=== PATIENT | female | born 1990 | race Caucasian/White ===

== ENCOUNTER 2023-07-06 01:33 | Day surgery (SDC) | payer OTHER, SELFPAY ==
[2023-06-17 09:50] VITALS: BMI 25.4
--- NOTE | 2023-07-06 08:55 | WPDANESEPPF ---
Anes - Initial Pre Proc Eval Procedure: Operation Date: 07/06/23 10:00 Proposed Procedures p Colonoscopy - Dany Peña MD Date/Time: 07/06/23 08:55 Surgeon: Dany Peña MD Pre Op Diagnosis: Hemorrhage of anus/rectum Patient Data Age: 33 Gender: F Height: 1.6 m Weight: 65 kg Allergies Allergy/AdvReac Type Severity Reaction Status Date / Time No Known Allergies Allergy Mild Verified 07/06/23 08:53 Home Medications Medication Instructions Recorded Confirmed Type glycopyrrolate 2 mg tablet 2 mg PO BID-TID PRN sweating 10/29/20 07/06/23 History vitamins with calcium 1 tablet PO DAILY #90 tabs 12/23/22 07/06/23 Rx no.72-iron 29 mg-folic acid 1 mg tablet medroxyprogesterone 10 mg tablet 10 mg PO DAILY #10 tabs 01/28/23 07/06/23 Rx (Provera) letrozole 2.5 mg tablet 5 mg PO DAILY 5 days #10 tabs 05/17/23 07/06/23 Rx Patient hx anesthesia problems: none Family hx anesthesia problems: none Results Review: All pre-operative results and documents have been reviewed as part of the pre-operative evaluation. FORMERLY [facility], [facility] Past Medical History Medical History Rectal bleeding Family History Family History Father Hypertension Grandparent Carcinoma of colon Social History Social History Smoking status: Never smoker Alcohol intake: current Drinks per week: 3 Substance use: never Do You Feel Safe in your Home?: Yes Lack of Transportation: No Lack of Food: Never True Current Housing: I Have Housing Concerned About Future Housing: No Difficulty Paying Gas/Electric Bills: No Difficulty Paying for Meds: No Currently Unemployed: No Education: Decline to Answer Difficulty w/ Childcare or Family Care: Decline to Answer Living arrangements: with family Occupation/Education: occupation Gender identity (if verbalized by the patient): Female Sexual Orientation (if Verbalized by the Patient): Straight or Heterosexual Spiritual care concerns: No Anes - Eval Final PreProcedure Day of Procedure 07/06/23 08:55 Patient weight: normal Heart: regular rate and rhythm Lungs: clear to auscultation Airway: Mallampati scale class II Neurological: alert and oriented Last oral intake: >/= 8 hours ASA classification: II Emergent: no Anesthetic plan: proceed Anesthesia type and monitoring: general GIVS and standard monitoring Results Review: All pre-operative results and documents have been reviewed as part of the pre-operative evaluation. Informed Consent: The patient's anesthetic plan and its attendant risks and benefits were discussed with the patient/family/POA. Questions were solicited and answers provided to the satisfaction of the patient/family/POA.
[2023-07-06 08:59] VITALS: BP 111/72; PULSE 82; RESP 16; TEMP 36.4; O2SAT 100
[2023-07-06] MEDS: LACTATED RINGERS 1,000 ML 150 ML IV CONT (09:07)
--- NOTE | 2023-07-06 09:24 | PM.HPGS ---
History of Present Illness History of Present Illness Consent: Risks, benefits, and alternatives have been discussed and questions answered. Patient agrees to proceed with procedure. Chief complaint: Hemorrhage of anus/rectum Narrative: Alexsandra Loyd is a 33 year old female here for first colonoscopy, had rectal bleeding Review of Systems Review of Systems: All systems reviewed & are unremarkable except as noted in HPI and below PMFSH Past Medical History Medical History Rectal bleeding Family History Family History Father Hypertension Grandparent Carcinoma of colon Social History Social History Smoking status: Never smoker Alcohol intake: current Drinks per week: 3 Substance use: never Do You Feel Safe in your Home?: Yes Lack of Transportation: No Lack of Food: Never True Current Housing: I Have Housing Concerned About Future Housing: No Difficulty Paying Gas/Electric Bills: No Difficulty Paying for Meds: No Currently Unemployed: No Education: Decline to Answer Difficulty w/ Childcare or Family Care: Decline to Answer Living arrangements: with family Occupation/Education: occupation Gender identity (if verbalized by the patient): Female Sexual Orientation (if Verbalized by the Patient): Straight or Heterosexual Spiritual care concerns: No Meds Home Medications and Allergies Home Medications Medication Instructions Recorded Confirmed Type glycopyrrolate 2 mg tablet 2 mg PO BID-TID PRN sweating 10/29/20 07/06/23 History vitamins with calcium 1 tablet PO DAILY #90 tabs 12/23/22 07/06/23 Rx no.72-iron 29 mg-folic acid 1 mg tablet medroxyprogesterone 10 mg tablet 10 mg PO DAILY #10 tabs 01/28/23 07/06/23 Rx (Provera) letrozole 2.5 mg tablet 5 mg PO DAILY 5 days #10 tabs 05/17/23 07/06/23 Rx Allergies Allergy/AdvReac Type Severity Reaction Status Date / Time No Known Allergies Allergy Mild Verified 07/06/23 08:53 Vital Signs Vital Signs - 24 hr 07/06/23 08:59 Temperature 97.6 F Pulse Rate 82 Respiratory Rate 16 Blood Pressure 111/72 Pulse Oximetry 100 Oxygen Delivery Room Air Exam Const: General: comfortable and no acute distress HENMT: Face/Nose/Sinus: Normal nares present Eyes: General: appearance normal, both eyes and all related structures Neck: Neck: no JVD Resp: Auscultation: clear to auscultation bilaterally Cardio: Rate: regular rate Rhythm: regular rhythm GI: Inspection: non-distended GI Palp: Yes Soft to palpation Skin: General skin exam: normal color Neuro: General: gait normal Speech: normal speech Extrem: General: normal to inspection Psych: Mental Status: mental status grossly normal Assessment and Plan Assessment and plan (1) Rectal bleeding: Code(s): K62.5 - Hemorrhage of anus and rectum Status: Acute Assessment and Plan: colonoscopy
[2023-07-06 09:44] VITALS: BP 102/61; PULSE 80; RESP 20; O2SAT 100
[2023-07-06 09:54] VITALS: BP 100/75; PULSE 78; RESP 20; O2SAT 100
[2023-07-06 10:04] VITALS: BP 110/66; PULSE 64; RESP 20; O2SAT 100
== END 2023-07-06 10:20 | disposition home or self-care (01) ==
PROVIDERS: Visit Provider Internal Medicine Gastroenterology
PROC: 0DJD8ZZ Inspection of Lower Intestinal Tract, Via Natural or Artificial Opening Endoscopic (ICD-10-PCS; CPT 45378; principal; 2023-07-06 10:00)
DX: K51.20 Ulcerative (chronic) proctitis without complications (principal); K64.8 Other hemorrhoids
CPT/HCPCS: 45380; 88305; J2704; J7120

== ENCOUNTER 2023-08-30 11:04 | Outpatient (CLI) | payer OTHER, SELFPAY ==
--- NOTE | ~2023-08-30 | XR_ITS ---
EXAMINATION: XR hysterosalpingogram DATE: 08/30/2023 13:12 INDICATION: Female infertility associated with anovulation. TECHNIQUE: Multiple fluoroscopic images were obtained during contrast infusion into the endometrial c anal of the uterus by the primary physician. Fluoroscopy exposure time was 0.4 minutes. A total of 6 images were recorded. Total DAP was 1.811 Gycm^2 FINDINGS: The uterine cavity demonstrates normal morphology. The fallopian tubes are normal in caliber and pat ent bilaterally. There is normal spillage of contrast into the peritoneum on both sides. IMPRESSION: 1. Normal hysterosalpingogram. Reviewed, dictated and finalized at location A.
[2023-08-30 11:56] LABS: Beta HCG Quantitative < 2.39 mIU/ML
== END 2023-08-30 11:05 | disposition home or self-care (01) ==
PROVIDERS: PCP Family Medicine Sports Medicine; Visit Provider Obstetrics & Gynecology
DX: N97.0 Female infertility associated with anovulation (principal); E28.2 Polycystic ovarian syndrome
CPT/HCPCS: 36415; 58340; 74740; 84702; Q9966

== ENCOUNTER 2023-11-26 12:18 | Outpatient (CLI) | payer OTHER, SELFPAY ==
--- NOTE | ~2023-11-26 | US_ITS ---
Pelvic ultrasound. Clinical History: First trimester , establish dates and viability. Technique: Realtime transabdominal and transvaginal scanning of the pelvis was performed. Color flow Doppler and Doppler spectral analysis were performed. Findings: The uterus is anteverted, and contains a diamniotic, dichorionic twin intrauterine gestatio n. Fetus A demonstrates crown-rump length of 2 cm, compatible with estimated gestational age of 8 wee ks 4 days. heart rate is 167 bpm. Fetus B demonstrates crown-rump length of 1.7 cm, compatible with estimated gestational age of 8 weeks 1 day. heart rate is 186 bpm.. Small subchorionic hem orrhage noted, measuring up to 2.3 cm in maximum length. The right ovary measures 3.4 x 4.4 x 3.3 cm. Right ovarian corpus luteal cyst noted. The left ovary is not visualized. No significant left ovarian or adnexal mass is seen. There is no evidence of free fluid in the cul de sac. Impression: Diamniotic, dichorionic twin intrauterine gestations, as detailed above. Estimated gestational ages a re in the ranges of 8 weeks 1 day-8 weeks 4 days. Cardiac activity, as above. Reviewed, dictated and finalized at location . Impression: Diamniotic, dichorionic twin intrauterine gestations, as detailed above. Estima jes gestational ages are in the ranges of 8 weeks 1 day-8 weeks 4 days. Cardiac activity, as above. Impression: Diamniotic, dichorionic twin intrauterine gestations, as detailed above. Estima jes gestational ages are in the ranges of 8 weeks 1 day-8 weeks 4 days. Cardiac activity, as above.
== END 2023-11-26 12:19 | disposition home or self-care (01) ==
LOC: GOSHIMG 12:23
PROVIDERS: PCP Obstetrics & Gynecology; Visit Provider Obstetrics & Gynecology
DX: Z36.87 Encounter for antenatal screening for uncertain dates (principal); O26.851 Spotting complicating pregnancy, first trimester; O30.041 Twin pregnancy, dichorionic/diamniotic, first trimester; Z3A.08 8 weeks gestation of pregnancy
CPT/HCPCS: 76801; 76802

== ENCOUNTER 2023-12-31 13:12 | Outpatient (CLI) | payer OTHER, SELFPAY ==
--- NOTE | ~2023-12-31 | US_ITS ---
EXAMINATION: US OB <= 14 weeks fetus DATE: 12/31/2023 13:37 INDICATION: Threatened TECHNIQUE: Real-time pelvic ultrasound utilizing transabdominal probe was performed. The josephine marie radiologist was not present for the study. COMPARISON: 12/15/2023 FINDINGS: The uterus measures 16.6 x 8.2 x 11.7 cm. There are 2 separate intrauterine gestational sacs separat ed by a thick membrane consistent with a dichorionic diamniotic . poles are identified in both gestational sacs. The placenta is anterior with no evident subchorionic hematoma. The crown rump length for fetus A in the sac positioned at the central and right fundus measures 7.5 cm, which correlates with an estimated gestational age of 13 weeks and 4 days. heart motion is identified measuring 171 beats per minute (bpm) by M-mode Doppler. The crown rump length for fetus B in the sac positioned on the left measures 1.6 cm, which correlates with an estimated gestational age of 8 weeks and 0 days. There remains no evident heart motion on M-mode Doppler consistent with the provided history of prior demise. The right ovary measures 3.9 x 2.6 x 3.2 cm. The left ovary not visualized. There is no free fluid in the pelvis. IMPRESSION: 1. Dichorionic, diamnionic with 1 living fetus with appropriate interval growth. Chronic d emise of the second fetus which has not significantly changed in size and which remains without evide nt heart motion on Doppler imaging. 2. [place]-rump length of fetus a measures 7.5 cm which concordant with the previously estimated gestat ional age of 13 weeks 4 day(s) +/- day(s) and estimated date of delivery (GRISEL) of 07/03/2024 based upo n earliest ultrasound performed at this institution on 11/26/2023. Reviewed, dictated and finalized at location B. YTIC PROGRAMMER IMPRESSION: 1. Dichorionic, diamnionic with 1 living fetus with appropriate inte rval growth. Chronic demise of the second fetus which has not significantly mason nged in size and which remains without evident heart motion on Doppler imaging. 2. [place]-rump length of fetus a measures 7.5 cm which concordant with the previ ously estimated gestational age of 13 weeks 4 day(s) +/- day(s) and estimated d ate of delivery (GRISEL) of 07/03/2024 based upon earliest ultrasound performed at this institution on 11/26/2023.
== END 2023-12-31 13:13 | disposition home or self-care (01) ==
LOC: MICIMG 13:13
PROVIDERS: PCP Obstetrics & Gynecology; Visit Provider Obstetrics & Gynecology
DX: O20.0 Threatened abortion (principal); Z3A.00 Weeks of gestation of pregnancy not specified
CPT/HCPCS: 76801

== ENCOUNTER 2024-01-30 15:59 | Emergency (ER) | payer OTHER, SELFPAY ==
[2024-01-30 16:04] VITALS: BP 107/59; PULSE 103; RESP 16; TEMP 36.4; O2SAT 100
--- NOTE | 2024-01-30 16:21 | ED_ITS ---
HPI - General Adult General Chief complaint: Nausea/Vomiting/Diarrhea Stated complaint: vomiting, 17 weeks Time Seen by Provider: 01/30/24 16:09 History of Present Illness HPI narrative: Patient is a 34-year-old female who presents ER with nausea and vomiting. Symptoms began this morning. Initially thought it was motion sickness but has not been able to keep down food water. She has also had a few loose stools. She has antiemetic medication home but was not available with her when symptoms started. No fevers or chills or sweats. She has a nephew that she was around that has illness but she is unsure if it is the same thing. She is currently 17 weeks and is followed by Dr. Sophia Dennis. She has not yet been able feel baby move. She is having no vaginal bleeding or discharge. Patient does report that she had a hot ham and cheese sandwich yesterday as well as a steak that was cooked approximately medium well. Related Data Allergies Allergy/AdvReac Type Severity Reaction Status Date / Time No Known Allergies Allergy Mild Verified 01/26/24 17:32 Review of Systems 2 Review of Systems: All systems reviewed & are unremarkable except as noted in HPI and below Constitutional: Constitutional: Reports no additional constitutional complaints Gastrointestinal: Gastrointestinal: Denies abdominal pain, Reports diarrhea, Reports nausea and Reports vomiting Genitourinary: Genitourinary: Reports no additional female genitourinary complaints [facility] Past Medical History Medical History Rectal bleeding Family History Family History Father Hypertension Grandparent Carcinoma of colon Social History Social History Smoking status: Never smoker Alcohol intake: former Drinks per week: 3 Alcohol use details: before Substance use: never Do You Feel Safe in your Home?: Yes Lack of Transportation: No Lack of Food: Never True Current Housing: I Have Housing Concerned About Future Housing: No Difficulty Paying Gas/Electric Bills: No Difficulty Paying for Meds: No Currently Unemployed: No Education: Bachelor's Degree Difficulty w/ Childcare or Family Care: No Living arrangements: with family Occupation/Education: occupation Gender identity (if verbalized by the patient): Female Sexual Orientation (if Verbalized by the Patient): Straight or Heterosexual Spiritual care concerns: No Exam 2 Narrative: GENERAL: Well-appearing, well-nourished, and in no acute distress. HEAD: Normocephalic, atraumatic. ENT: Mucous membranes moist. CHEST: Clear to auscultation. No respiratory distress. HEART: Tachycardic and regular. Normal peripheral pulses. ABDOMEN: Soft, nontender, nondistended. EXTREMITIES: Normal range of motion. No edema. NEURO: Alert and oriented x3. PSYCH: Normal mood and affec Course Course Emergency Course: Patient resting comfortably. Hydrated. 4+ ketones in urine. No UTI. Tolerating PO. Has zofran at home, will provide phenergan as well. D/c. Vital Signs Vital signs: Vital Signs Temperature 97.5 F L 01/30/24 16:04 Pulse Rate 103 H 01/30/24 16:04 Respiratory Rate 16 01/30/24 16:04 Blood Pressure 107/59 L 01/30/24 16:04 Pulse Oximetry 100 01/30/24 16:04 Oxygen Delivery Room Air 01/30/24 16:04 Temperature 97.5 F L 01/30/24 16:04 Pulse Rate 100 01/30/24 18:13 Respiratory Rate 16 01/30/24 18:13 Blood Pressure 102/55 L 01/30/24 18:13 Pulse Oximetry 99 01/30/24 18:13 Oxygen Delivery Room Air 01/30/24 16:04 Medical Decision Making Vital Signs Vital Signs: Vital Signs Temperature 97.5 F L 01/30/24 16:04 Pulse Rate 103 H 01/30/24 16:04 Respiratory Rate 16 01/30/24 16:04 Blood Pressure 107/59 L 01/30/24 16:04 Pulse Oximetry 100 01/30/24 16:04 Oxygen Delivery Room Air 01/30/24 16:04 Temperature 97.5 F L 01/30/24 16:04 Pulse Rate 100 01/30/24 18:13 Respiratory Rate 16 01/30/24 18:13 Blood Pressure 102/55 L 01/30/24 18:13 Pulse Oximetry 99 01/30/24 18:13 Oxygen Delivery Room Air 01/30/24 16:04 Lab Data 01/30/24 16:46 01/30/24 16:46 Labs: Lab Results 01/30/24 01/30/24 Range/Units 16:46 17:17 WBC 12.2 H (4.5-10.0) K/mm3 RBC 4.21 (4.2-5.4) M/mm3 Hgb 12.2 (12.0-15.0) g/dL Hct 35.1 L (37.0-47.0) % MCV 83.4 (80-100) fl MCH 29.0 (26-34) pg MCHC 34.8 (32-36) g/dl RDW 12.5 (11.5-14.5) % Plt Count 202 (150-375) k/mm3 MPV 9.9 (7.4-10.4) fl Immature Gran % (Auto) 0.3 (0-0.5) % Neut % (Auto) 93.2 H (45.5-73.1) % Lymph % (Auto) 3.0 L (18.3-44.2) % [place] % (Auto) 3.1 (2.6-8.5) % Eos % (Auto) 0.2 (0-4.4) % Baso % (Auto) 0.2 (0.2-1.2) % Lymph # (Auto) 0.37 L (0.9-3.2) K/mm3 [place] # (Auto) 0.4 (0.1-0.6) K/mm3 Eos # (Auto) 0.0 (0-0.3) K/mm3 Baso # (Auto) 0.0 (0.0-0.1) K/mm3 Abs Immat Gran (auto) 0.04 H (0.00-0.031) K/mm3 Absolute Neuts (auto) 11.4 H (1.3-6.7) K/mm3 Absolute Nucleated RBC 0.000 (0.0-0.012) K/mm3 Nucleated RBC % 0.0 (0.0-0.2) % Sodium 133 L (137-145) mmol/L Potassium 4.3 (3.4-5.0) mmol/L Chloride 105 (98-107) mmol/L Carbon Dioxide 21 L (22-30) mmol/L Anion Gap 7 (4-12) mmol/L BUN 14 (7-17) mg/dL Creatinine 0.60 L (0.7-1.0) mg/dL Estim Creat Clear Calc 95 ml/min Estimated GFR > 60 (59 - ) Glucose 79 (65-110) mg/dL Calcium 8.8 (8.4-10.2) mg/dL Total Bilirubin 0.5 (0.2-1.3) mg/dL AST 19 (14-36) U/L ALT 16 (6-35) U/L Alkaline Phosphatase 51 (38-126) U/L Total Protein 7.0 (6.3-8.2) g/dL Albumin 3.9 (3.5-5.1) g/dL Lipase 87 (23-300) U/L Urine Color Yellow (Yellow) Urine Appearance Clear (Clear) Urine pH 5.5 (5.0-9.0) Ur Specific [place] 1.031 (1.001-1.035) Urine Protein Trace (Negative) mg/dL Urine Glucose (UA) Negative (Negative) mg/dL Urine Ketones 4+ H (Negative) mg/dL Ur Blood (Man) Negative (Negative) Urine Nitrate Negative (Negative) Urine Bilirubin Negative (Negative) Urine Urobilinogen 0.2 (<2.0) mg/dL Leukocyte Esterase Rfl Negative (Negative) SANTA/UL Urine RBC 0-2 (0-2) /hpf Urine WBC 0-5 (0-3) /hpf Ur Squamous Epith Cells None seen (Few) /hpf Urine Bacteria None seen /hpf Urine Casts 0-2 Discharge Plan Discharge Clinical Impression: Nausea and vomiting during Patient Disposition: Home, Self-Care Condition: Stable Instructions: Acute Nausea and Vomiting (ED) Additional Instructions: Please drink plenty of fluids at home. Return to the emergency department if you develop high fevers, have persistent severe abdominal pain, or have bloody stools or vomit, as these could be signs of a more serious medical emergency. Return to the emergency department if you are unable to keep down liquids because of severe nausea/vomiting. Patient Language: Mongolian Prescriptions: New promethazine 25 mg tablet 12.5 - 25 mg PO Q6H PRN (Reason: nausea and vomiting) Qty: 12 0RF No Action PNV,calcium 72-iron,carb-folic 29 mg iron- 1 mg tablet 1 tablet PO DAILY Qty: 90 1RF mesalamine [Canasa] 1,000 mg suppository 1 g RECTAL .daily 30 Days Qty: 30 3RF Follow-up/Referrals: Sophia Dennis MD [Primary Care Provider] - 1 Week
[2024-01-30] MEDS: ONDANSETRON INJ 4 MG/2 ML VIAL IV PUSH (16:43)
[2024-01-30] MEDS: SODIUM CHLORIDE 0.9% IV 1,000 ML 999 ML IV CONT ×2 (16:43→17:33)
--- NOTE | 2024-01-30 16:51 | PC.NURSE ---
Pt reports unable to give urine sample at this time, will use call light when ready to give sample
[2024-01-30 16:52] LABS: Basophils Percent Auto 0.2 % (0.2-1.2); Eosinophils Percent Auto 0.2 % (0-4.4); Hematocrit 35.1 % (37.0-47.0); Hemoglobin 12.2 g/dL (12.0-15.0); Immature Granulocyte Absolute 0.04 K/mm3 (0.00-0.031); Immature Granulocyte Percent A 0.3 % (0-0.5); Lymphocytes Absolute Auto 0.37 K/mm3 (0.9-3.2); Mean Corpuscular HGB Conc 34.8 g/dl (32-36); Mean Corpuscular Volume 83.4 fl (80-100); Mean Platelet Volume 9.9 fl (7.4-10.4); Monocytes Absolute Auto 0.4 K/mm3 (0.1-0.6); Monocytes Percent Auto 3.1 % (2.6-8.5); Neutrophils Absolute Auto 11.4 K/mm3 (1.3-6.7); Neutrophils Percent Auto 93.2 % (45.5-73.1); Platelet Count Result 202 k/mm3 (150-375); Red Blood Count 4.21 M/mm3 (4.2-5.4); Red Cell Distribution Width 12.5 % (11.5-14.5); White Blood Count 12.2 K/mm3 (4.5-10.0)
[2024-01-30 17:04] LABS: Alanine Aminotransferase 16 U/L (6-35); Albumin Level 3.9 g/dL (3.5-5.1); Alkaline Phosphatase 51 U/L (38-126); Anion Gap 7 mmol/L (4-12); Aspartate Amino Transferase 19 U/L (14-36); Bilirubin,Total 0.5 mg/dL (0.2-1.3); Blood Urea Nitrogen 14 mg/dL (7-17); Calcium 8.8 mg/dL (8.4-10.2); Carbon Dioxide 21 mmol/L (22-30); Chloride 105 mmol/L (98-107); Estimated CRCL calculation 95 ml/min; Estimated Glomerular Filt Rate > 60; Glucose 79 mg/dL (65-110); Lipase 87 U/L (23-300); Potassium 4.3 mmol/L (3.4-5.0); Sodium 133 mmol/L (137-145)
[2024-01-30 17:28] LABS: Add Urine Microscopic? YES; Appearance Urine Clear (Clear); Bacteria Urine None Seen /hpf; Bilirubin Urine Negative (Negative); Blood Urine Negative (Negative); Color Urine Yellow (Yellow); Glucose Urine UA Negative (Negative); Ketones Urine 4+ mg/dL (Negative); Leukocyte Esterase Ur Negative LEU/UL (Negative); Nitrate Urine Negative (Negative); Non Pathogenic Casts 0-2; Protein Urine Trace mg/dL (Negative); RBC Urine 0-2 /hpf (0-2); Specific Grav Ur 1.031 (1.001-1.035); Squamous Epithelial Cell Urine None Seen /hpf (Few); Urobilinogen Urine 0.2 mg/dL (<2.0); WBC Urine 0-5 /hpf (0-3); pH Urine 5.5 (5.0-9.0)
[2024-01-30 17:34] VITALS: BP 98/63; PULSE 97; RESP 18; O2SAT 99
--- NOTE | 2024-01-30 17:34 | PC.NURSE ---
Pt given crackers and water per EDP for PO challenge
[2024-01-30 18:13] VITALS: BP 102/55; PULSE 100; RESP 16; O2SAT 99
[2024-01-30 18:39] VITALS: BP 105/52; PULSE 100; RESP 18; O2SAT 100
== END 2024-01-30 18:44 | disposition home or self-care (01) ==
PROVIDERS: Emergency Provider Emergency Medicine; PCP Obstetrics & Gynecology
DX: O21.0 Mild hyperemesis gravidarum (principal); Z3A.17 17 weeks gestation of pregnancy
CPT/HCPCS: 36415; 80053; 81001; 83690; 85025; 96361; 96374; 99284; J2405; J7030

== ENCOUNTER 2024-02-01 09:06 | Emergency (ER) | payer OTHER, SELFPAY ==
--- NOTE | ~2024-02-01 | US_ITS ---
EXAMINATION: US OB limited DATE: 02/01/2024 10:33 INDICATION: Low abdominal pain. . Estimated gestational age of 18 weeks and 0 days. TECHNIQUE: Real-time ultrasound of the pelvis was performed. COMPARISON: Ultrasound 12/31/2023 FINDINGS: There are 2 gestational sacs by a thick membrane. There is chronic demise of one fetus with crown-rump length of 1.1 cm. There is a living intrauterine gestation with variable presentation. Th e placenta is anterior. heart rate is 155 beats per minute (bpm). The amniotic fluid volume is subjectively normal. The deepest vertical pocket is 4.3 cm. Right ovary measures 4.4 x 3.8 x 3.2 cm. Left ovary measures 3.1 x 2.7 x 2.5 cm. There is normal vascular flow in the ovaries. IMPRESSION: 1. Dichorionic, diamniotic with single living fetus in variable presentation and chronic de mise of the second fetus. Reviewed, dictated and finalized at location [facility]. [facility] IMPRESSION: 1. Dichorionic, diamniotic with single living fetus in variable prese ntation and chronic demise of the second fetus.
[2024-02-01 09:07] VITALS: BP 88/50; PULSE 80; RESP 16; TEMP 36.4; O2SAT 100
[2024-02-01 09:36] LABS: Basophils Percent Auto 0.3 % (0.2-1.2); Eosinophils Absolute Auto 0.1 K/mm3 (0-0.3); Eosinophils Percent Auto 0.8 % (0-4.4); Hematocrit 34.2 % (37.0-47.0); Hemoglobin 11.7 g/dL (12.0-15.0); Immature Granulocyte Absolute 0.04 K/mm3 (0.00-0.031); Immature Granulocyte Percent A 0.6 % (0-0.5); Lymphocytes Absolute Auto 1.15 K/mm3 (0.9-3.2); Lymphocytes Percent Auto 17.8 % (18.3-44.2); Mean Corpuscular HGB Conc 34.2 g/dl (32-36); Mean Corpuscular Hemoglobin 28.5 pg (26-34); Mean Corpuscular Volume 83.4 fl (80-100); Monocytes Absolute Auto 0.5 K/mm3 (0.1-0.6); Monocytes Percent Auto 7.1 % (2.6-8.5); Neutrophils Absolute Auto 4.8 K/mm3 (1.3-6.7); Neutrophils Percent Auto 73.4 % (45.5-73.1); Platelet Count Result 243 k/mm3 (150-375); White Blood Count 6.5 K/mm3 (4.5-10.0)
[2024-02-01 09:39] VITALS: BP 101/65; PULSE 88; RESP 16; O2SAT 100
[2024-02-01] MEDS: SODIUM CHLORIDE 0.9% IV 1,000 ML 999 ML IV CONT (09:43)
--- NOTE | 2024-02-01 09:43 | ED_ITS ---
HPI - Abdominal Pain General Chief Complaint: Abdominal Pain <Dominic Bundy PA-C - Last Filed: 02/01/24 17:25> Stated Complaint: abd pain 18 wks preg <Dominic Bundy PA-C - Last Filed: 02/01/24 17:25> Time Seen by Provider: 02/01/24 09:31 <Dominic Bundy PA-C - Last Filed: 02/01/24 17:25> Source: patient <WILIAM Olivera Last Filed: 02/01/24 17:25> Mode of arrival: ambulatory <Dominic Bundy PA-C - Last Filed: 02/01/24 17:25> Limitations: no limitations <Dominic Bundy PA-C - Last Filed: 02/01/24 17:25> History of Present Illness HPI narrative: This is a 34-year-old female who was around 18 weeks and who presents to the ED for chief complaint of right-sided abdominal pain beginning this morning. Reports she was here couple of days ago for nausea, vomiting. States that she was dehydrated but the nausea and vomiting has since subsided. Today she is just having the right-sided abdominal pain. It is in the right lower quadrant and does not radiate. She does note that the pain is precipitated by certain positioning or movements. Denies associated fevers or diarrhea. 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 She is . Follows with Dr. Dennis. Denies diarrhea, GI bleeding symptoms, flank pain, urinary symptoms or any further complaints. <Dominic Bundy PA-C - Last Filed: 02/01/24 17:25> Related Data Allergies/Adverse Reactions: Allergies Allergy/AdvReac Type Severity Reaction Status Date / Time No Known Allergies Allergy Mild Verified 02/01/24 09:07 <Dominic Bundy PA-C - Last Filed: 02/01/24 17:25> Review of Systems 2 Review of Systems: All systems as dictated in HPI <Dominic Bundy PA-C - Last Filed: 02/01/24 17:25> [facility] Past Medical History Medical History: Medical History Rectal bleeding <Dominic Bundy PA-C - Last Filed: 02/01/24 17:25> Family History Family History: Family History Father Hypertension Grandparent Carcinoma of colon <WILIAM Olivera Last Filed: 02/01/24 17:25> Social History Social History: Social History Smoking status: Never smoker Alcohol intake: former Drinks per week: 3 Alcohol use details: before Substance use: never Do You Feel Safe in your Home?: Yes Lack of Transportation: No Lack of Food: Never True Current Housing: I Have Housing Concerned About Future Housing: No Difficulty Paying Gas/Electric Bills: No Difficulty Paying for Meds: No Currently Unemployed: No Education: Bachelor's Degree Difficulty w/ Childcare or Family Care: No Living arrangements: with family Occupation/Education: occupation Gender identity (if verbalized by the patient): Female Sexual Orientation (if Verbalized by the Patient): Straight or Heterosexual Spiritual care concerns: No <WILIAM Olivera Last Filed: 02/01/24 17:25> Exam 2 Narrative: GENERAL: Well-appearing, well-nourished, and in no acute distress. HEAD: Normocephalic, atraumatic. EYES: PERRLA and EOMI. ENT: Nares clear, no rhinorrhea or epistaxis. Mucous membranes moist. Oropharynx without tonsillar hypertrophy exudate or other lesions. NECK: Supple. No adenopathy or masses. CHEST: No respiratory distress. Clear to auscultation. No wheezes rales or rhonchi HEART: Regular rate and rhythm. No murmur heard. Normal peripheral pulses. ABDOMEN: Gravid abdomen. Soft, nontender, nondistended, normal active bowel sounds. MSK: Normal range of motion. No edema. SKIN: Warm, dry, no rash. NEURO: Alert and oriented x4. No focal deficits. PSYCH: Normal mood and affect. <Dominic Bundy PA-C - Last Filed: 02/01/24 17:25> Course FLOW SPECIALIST/PA Physician Supervision Patient's HPI, Exam, and MDM were reviewed and I agreed with the workup and disposition done in the emergency department by the MLP. I was available for consultation, but was not directly involved with patient's care nor did I evaluate the patient. <Janes Long MD - Last Filed: 02/04/24 10:46> Vital Signs Vital signs: Vital Signs Temperature 36.4 C L 02/01/24 09:07 Pulse Rate 80 02/01/24 09:07 Respiratory Rate 16 02/01/24 09:07 Blood Pressure 88/50 L 02/01/24 09:07 Pulse Oximetry 100 02/01/24 09:07 Oxygen Delivery Room Air 02/01/24 09:07 Temperature 36.4 C L 02/01/24 09:07 Pulse Rate 88 02/01/24 09:39 Respiratory Rate 16 02/01/24 09:39 Blood Pressure 101/65 02/01/24 09:39 Pulse Oximetry 100 02/01/24 09:39 Oxygen Delivery Room Air 02/01/24 09:07 <RADHA OliveraC - Last Filed: 02/01/24 17:25> Vital Signs Temperature 36.4 C L 02/01/24 09:07 Pulse Rate 80 02/01/24 09:07 Respiratory Rate 16 02/01/24 09:07 Blood Pressure 88/50 L 02/01/24 09:07 Pulse Oximetry 100 02/01/24 09:07 Oxygen Delivery Room Air 02/01/24 09:07 Temperature 36.4 C L 02/01/24 09:07 Pulse Rate 88 02/01/24 09:39 Respiratory Rate 16 02/01/24 09:39 Blood Pressure 101/65 02/01/24 09:39 Pulse Oximetry 100 02/01/24 09:39 Oxygen Delivery Room Air 02/01/24 09:07 <Janes Long MD - Last Filed: 02/04/24 10:46> MDM - Abdominal Pain MDM Narrative Medical decision making narrative: This is a 34-year-old female who is approximately 18 weeks presents to the ED for chief complaint of right lower quadrant abdominal pain. She was just here couple days ago for N/V but this has resolved. Vitals are normal. Exam is unremarkable overall. No focal tenderness detected on exam. Lab work shows normal white count on CBC. It actually has improved are from 12- 6 compared to previous visit 2 days ago. CMP unremarkable. Urinalysis shows 4+ ketones. No UTI. Ultrasound obstetric: IMPRESSION: 1. Dichorionic, diamniotic with single living fetus in variable presentation and chronic demise of the second fetus. Offered patient pain medications but she declined here. She was given fluids for the dehydration as well as Tylenol. She feels well on re-evaluation. Presentation most likely consistent with round ligament pain. Low suspicion for acute intra-abdominal process, no clinical evidence of appendicitis. No clinical evidence for renal lithiasis. Patient will be discharged in stable condition. Supportive measures discussed and return precautions given. Patient is understanding and agreeable with plan for discharge with PCP/OB follow-up. <Dominic Bundy PA-C - Last Filed: 02/01/24 17:25> Lab Data Result diagrams: 02/01/24 09:25 02/01/24 09:25 <Dominic Bundy PA-C - Last Filed: 02/01/24 17:25> Labs: Lab Results 02/01/24 02/01/24 Range/Units 09:25 10:37 WBC 6.5 (4.5-10.0) K/mm3 RBC 4.10 L (4.2-5.4) M/mm3 Hgb 11.7 L (12.0-15.0) g/dL Hct 34.2 L (37.0-47.0) % MCV 83.4 (80-100) fl MCH 28.5 (26-34) pg MCHC 34.2 (32-36) g/dl RDW 13.0 (11.5-14.5) % Plt Count 243 (150-375) k/mm3 MPV 10.0 (7.4-10.4) fl Immature Gran % (Auto) 0.6 H (0-0.5) % Neut % (Auto) 73.4 H (45.5-73.1) % Lymph % (Auto) 17.8 L (18.3-44.2) % [place] % (Auto) 7.1 (2.6-8.5) % Eos % (Auto) 0.8 (0-4.4) % Baso % (Auto) 0.3 (0.2-1.2) % Lymph # (Auto) 1.15 (0.9-3.2) K/mm3 [place] # (Auto) 0.5 (0.1-0.6) K/mm3 Eos # (Auto) 0.1 (0-0.3) K/mm3 Baso # (Auto) 0.0 (0.0-0.1) K/mm3 Abs Immat Gran (auto) 0.04 H (0.00-0.031) K/mm3 Absolute Neuts (auto) 4.8 (1.3-6.7) K/mm3 Absolute Nucleated RBC 0.000 (0.0-0.012) K/mm3 Nucleated RBC % 0.0 (0.0-0.2) % Sodium 132 L (137-145) mmol/L Potassium 3.6 (3.4-5.0) mmol/L Chloride 107 (98-107) mmol/L Carbon Dioxide 19 L (22-30) mmol/L Anion Gap 6 (4-12) mmol/L BUN 7 D (7-17) mg/dL Creatinine 0.60 L (0.7-1.0) mg/dL Estim Creat Clear Calc 95 ml/min Estimated GFR > 60 (59 - ) Glucose 100 (65-110) mg/dL Calcium 8.6 (8.4-10.2) mg/dL Total Bilirubin 0.4 (0.2-1.3) mg/dL AST 35 (14-36) U/L ALT 30 (6-35) U/L Alkaline Phosphatase 58 (38-126) U/L Total Protein 6.0 L (6.3-8.2) g/dL Albumin 3.8 (3.5-5.1) g/dL Lipase 87 (23-300) U/L Urine Color Yellow (Yellow) Urine Appearance Clear (Clear) Urine pH 8.0 (5.0-9.0) Ur Specific Griffith 1.015 (1.001-1.035) Urine Protein Negative (Negative) mg/dL Urine Glucose (UA) Negative (Negative) mg/dL Urine Ketones 4+ H (Negative) mg/dL Ur Blood (Man) Negative (Negative) Urine Nitrate Negative (Negative) Urine Bilirubin Negative (Negative) Urine Urobilinogen 1.0 (<2.0) mg/dL Leukocyte Esterase Rfl Negative (Negative) [facility] <Dominic Bundy PA-C - Last Filed: 02/01/24 17:25> Lab Results 02/01/24 02/01/24 Range/Units 09:25 10:37 WBC 6.5 (4.5-10.0) K/mm3 RBC 4.10 L (4.2-5.4) M/mm3 Hgb 11.7 L (12.0-15.0) g/dL Hct 34.2 L (37.0-47.0) % MCV 83.4 (80-100) fl MCH 28.5 (26-34) pg MCHC 34.2 (32-36) g/dl RDW 13.0 (11.5-14.5) % Plt Count 243 (150-375) k/mm3 MPV 10.0 (7.4-10.4) fl Immature Gran % (Auto) 0.6 H (0-0.5) % Neut % (Auto) 73.4 H (45.5-73.1) % Lymph % (Auto) 17.8 L (18.3-44.2) % [place] % (Auto) 7.1 (2.6-8.5) % Eos % (Auto) 0.8 (0-4.4) % Baso % (Auto) 0.3 (0.2-1.2) % Lymph # (Auto) 1.15 (0.9-3.2) K/mm3 [place] # (Auto) 0.5 (0.1-0.6) K/mm3 Eos # (Auto) 0.1 (0-0.3) K/mm3 Baso # (Auto) 0.0 (0.0-0.1) K/mm3 Abs Immat Gran (auto) 0.04 H (0.00-0.031) K/mm3 Absolute Neuts (auto) 4.8 (1.3-6.7) K/mm3 Absolute Nucleated RBC 0.000 (0.0-0.012) K/mm3 Nucleated RBC % 0.0 (0.0-0.2) % Sodium 132 L (137-145) mmol/L Potassium 3.6 (3.4-5.0) mmol/L Chloride 107 (98-107) mmol/L Carbon Dioxide 19 L (22-30) mmol/L Anion Gap 6 (4-12) mmol/L BUN 7 D (7-17) mg/dL Creatinine 0.60 L (0.7-1.0) mg/dL Estim Creat Clear Calc 95 ml/min Estimated GFR > 60 (59 - ) Glucose 100 (65-110) mg/dL Calcium 8.6 (8.4-10.2) mg/dL Total Bilirubin 0.4 (0.2-1.3) mg/dL AST 35 (14-36) U/L ALT 30 (6-35) U/L Alkaline Phosphatase 58 (38-126) U/L Total Protein 6.0 L (6.3-8.2) g/dL Albumin 3.8 (3.5-5.1) g/dL Lipase 87 (23-300) U/L Urine Color Yellow (Yellow) Urine Appearance Clear (Clear) Urine pH 8.0 (5.0-9.0) Ur Specific Griffith 1.015 (1.001-1.035) Urine Protein Negative (Negative) mg/dL Urine Glucose (UA) Negative (Negative) mg/dL Urine Ketones 4+ H (Negative) mg/dL Ur Blood (Man) Negative (Negative) Urine Nitrate Negative (Negative) Urine Bilirubin Negative (Negative) Urine Urobilinogen 1.0 (<2.0) mg/dL Leukocyte Esterase Rfl Negative (Negative) [facility] <Janes Long MD - Last Filed: 02/04/24 10:46> Imaging Data Radiologist's impression: ITS Impressions Obstetrics Ultrasound 02/01/24 10:40 IMPRESSION: 1. Dichorionic, diamniotic with single living fetus in variable presentation and chronic demise of the second fetus. <Dominic Bundy PA-C - Last Filed: 02/01/24 17:25> ITS Impressions Obstetrics Ultrasound 02/01/24 10:40 IMPRESSION: 1. Dichorionic, diamniotic with single living fetus in variable presentation and chronic demise of the second fetus. <Janes Long MD - Last Filed: 02/04/24 10:46> Discharge Plan Discharge Clinical Impression: Abdominal pain <Dominic Bundy PA-C - Last Filed: 02/01/24 17:25> Patient Disposition: Home, Self-Care <Dominic Bundy PA-C - Last Filed: 02/01/24 17:25> Condition: Stable <Dominic Bundy PA-C - Last Filed: 02/01/24 17:25> Instructions: Antibiotic Form <Dominic Bundy PA-C - Last Filed: 02/01/24 17:25> Additional Instructions: Your exam and workup today are reassuring overall. Please follow-up closely with OB on this issue. Take 500 mg of Tylenol every 6 hours as needed for pain control. Return to the ER if you have uncontrollable pain, fevers or vomiting. <Dominic Bundy PA-C - Last Filed: 02/01/24 17:25> Patient Language: Japanese <Dominic Bundy PA-C - Last Filed: 02/01/24 17:25> Prescriptions: No Action PNV,calcium 72-iron,carb-folic 29 mg iron- 1 mg tablet 1 tablet PO DAILY Qty: 90 1RF promethazine 25 mg tablet 12.5 - 25 mg PO Q6H PRN (Reason: nausea and vomiting) Qty: 12 0RF mesalamine [Canasa] 1,000 mg suppository 1 g RECTAL .daily 30 Days Qty: 30 3RF <Dominic Bundy PA-C - Last Filed: 02/01/24 17:25> Follow-up/Referrals: Sophia Dennis MD [Primary Care Provider] - <Dominic Bundy PA-C - Last Filed: 02/01/24 17:25> Time of Disposition: 11:26 <Dominic Bundy PA-C - Last Filed: 02/01/24 17:25> 11:26 <Janes Long MD - Last Filed: 02/04/24 10:46>
[2024-02-01 09:46] LABS: Alanine Aminotransferase 30 U/L (6-35); Albumin Level 3.8 g/dL (3.5-5.1); Alkaline Phosphatase 58 U/L (38-126); Anion Gap 6 mmol/L (4-12); Aspartate Amino Transferase 35 U/L (14-36); Bilirubin,Total 0.4 mg/dL (0.2-1.3); Blood Urea Nitrogen 7 mg/dL (7-17); Calcium 8.6 mg/dL (8.4-10.2); Carbon Dioxide 19 mmol/L (22-30); Chloride 107 mmol/L (98-107); Estimated CRCL calculation 95 ml/min; Estimated Glomerular Filt Rate > 60; Glucose 100 mg/dL (65-110); Lipase 87 U/L (23-300); Potassium 3.6 mmol/L (3.4-5.0); Sodium 132 mmol/L (137-145)
[2024-02-01] MEDS: ACETAMINOPHEN 500 MG TABLET 1000 MG PO (10:31)
[2024-02-01 10:47] LABS: Add Urine Microscopic? NO; Appearance Urine Clear (Clear); Bilirubin Urine Negative (Negative); Blood Urine Negative (Negative); Color Urine Yellow (Yellow); Glucose Urine UA Negative (Negative); Ketones Urine 4+ mg/dL (Negative); Leukocyte Esterase Ur Negative LEU/UL (Negative); Nitrate Urine Negative (Negative); Protein Urine Negative (Negative); Specific Grav Ur 1.015 (1.001-1.035)
[2024-02-01] MEDS: SODIUM CHLORIDE 0.9% IV 500 ML 999 ML IV CONT (11:39)
--- OUTSIDE RECORDS SUMMARY | 2024-02-08 18:19 | XMS_ITS | Continuity of Care Document ---
[facility] Organization [facility] Address [address] [place] [address] Phone Care Team Providers Care Alpaca Farmer Name Role Phone Alfredo PT,MPT,ATC, Dominic Unavailable Unavai lable Procedures Procedure Date Therapeutic Activities Neuromuscular Re-Ed Therapeutic Activities Neuromuscular Re-Ed Therapeutic Activities Neuromuscular Re-Ed Therapeutic Activities Neuromuscular Re-Ed Therapeutic Activities Neuromuscular Re-Ed Therapeutic Activities Neuromuscular Re-Ed Therapeutic Exercise PT Evaluation Low Complexity Therapeutic Activities Neuromuscular Re-Ed Therapeutic Exercise Advance Directives Directive Yes / No Effective Date File Name No Information Encounters Encounter Description Practice Location Reason(s) For Visit Diagnoses Date Provider Providers Copied on Encounter [facility], [place], [place], [id number], tel:[phone] [place] No Information 4 YVAN [place], [place]. [facility], [place], [place], [id number], tel:[phone] [place] No Information 3 YVAN [place], [place]. Referring Provider: Martha Mccartney , [address], [place], [address]. tel:[phone] [facility], [place], [place], [id number], [place] tel:[phone] [place] No Information 3 Fuentes Dominic. [place], [place], [place]. Referring Provider: Martha Mccartney , [address], [place], [address]. tel:[phone] [facility], [place], [place], [id number], [place] tel:[phone] [place] No Information 3 Fuentes Dominic. , [place], [place]. Referring Provider: Martha Mccartney , [address], [place], [address]. tel:[phone] [facility], [place], [place], [id number], [place] tel:[phone] [place] No Information 3 [address] Dominic. , [place], [place]. Referring Provider: Martha Mccartney , [address], [place], [address]. tel:[phone] [facility], [place], [place], [id number], [place] tel:[phone] [place] No Information 3 Fu[address] Dominic. , [place], [place]. Referring Provider: Martha Mccartney , [address], [place], [address]. tel:[phone] [facility], [place], [place], [id number], [place] tel:[phone] [place] No Information 3 Fu[address] Dominic. [place], [place], [place]. Referring Provider: Martha Mccartney , [address], [place], [address]. tel:[phone] [facility], [place], [place], [address], tel:[phone] [place] No Information 3 Manuel Paece. . Referring Provider: Martha Mccartney , [address], [place], [address]. tel:[phone] Family History Family Member Type Diagnosis Age At Onset No Information Payers Payer name Insurance type Covered libertarian ID [employer] paco(s) R [id number] Social History Type Description Quantity Date Captured Comments Sex Female Smoking Status No Information Chief Complaint And Reason For Visit No Information Reason For Referral Reason For Referral No Information History Of Present Illness Encounter Date Complaint History Of Prese nt Illness No Information Functional Status Date Functional Assessmen t No Information Instructions Date Instruction Additional Infor elijah Giving encouragement to exercise Related to Overweight Giving encouragement to exercise Related to Overweight Assessments Type Assessment Date No Information Patient Care Teams Name Effective Dates (start - stop) Status Members No Information
--- OUTSIDE RECORDS SUMMARY | 2024-02-08 18:19 | XMS_ITS | Encounter Summary ---
Author Organization [facility] Healthcare Address [address] [place] [address] Care Team Providers Care Billiard Table Repairer Name Role Phone Valentin Rosenberg MD Unavailable [phone] Tejas Dejesus MD Unavailable [phone] Bhavya Oquendo NP Primary Care Provider [phone] Reason for Visit * Reason Comments Annual Exam 12.5 weeks Encounter Details Date Type Department Care Team (Late st Contact Info) Description 12/28/2023 1:30 PM TRAUMA COORDINATOR Office Visit [facility] Primary Care at [address] [address] Bhavya Oquendo NP [address] [place] [id number] Annual physical exam (Primary Dx) Social History Tobacco Use Types Packs/Day Years Used Date Smoking Tobacco: Never Passive Smoke Exposure: Past Smokeless Tobacco: Never Passive Exposure Comments:pa rents smoked Alcohol Use Standard Drinks/Week Comments Yes 0 (1 standard drink = 0.6 oz pur e alcohol) PHQ-2 Answer Date Recorded PHQ-2 Total Score (If total score is 3 or more points, staff should administer the PHQ-9) 0 12/28/2023 Comments Yes Sex and Gender Information Value Date Recorded Sex Assigned at Not on file Legal Sex Female 9:22 PM TRAUMA COORDINATOR Gender Identity Not on file Sexual Orientation Not on file documented as of this encounter Last Filed Vital Signs Vital Sign Reading Time Taken Comments Blood Pressure 100/60 12/28/2023 1:36 PM TRAUMA COORDINATOR Pulse 90 12/28/2023 1:36 PM TRAUMA COORDINATOR Temperature 36.7 ??C (98.1 ??F) 12/28/2023 1:36 PM CS T Respiratory Rate 18 12/28/2023 1:36 PM TRAUMA COORDINATOR Oxygen Saturation 98% 12/28/2023 1:36 PM TRAUMA COORDINATOR Inhaled Oxygen Concentration - - Weight 64.1 kg (141 lb 6.4 oz) 12/28/2023 1:36 P M TRAUMA COORDINATOR Height 160 cm (5' 3 ) 12/28/2023 1:36 PM TRAUMA COORDINATOR Body Mass Index 25.05 12/28/2023 1:36 PM TRAUMA COORDINATOR documented in this encounter Patient Instructions * Patient Instructions* Bhavya Oquendo NP - 12/28/2023 1:30 PM TRAUMA COORDINATOR My medical sales consultant and I are thankful you have trusted us with your care, and hope that you received EXCELLENT care ! Please do not hesitate to call if you have any questions or concerns at MA COORDINATOR documented in this encounter Progress Notes * Bhavya Oquendo NP - 12/28/2023 1:30 PM CST Images from the original note were not included. Chief Complaint Patient presents with Annual Exam 12.5 weeks Subjective: Alexsandra Loyd is a 33 y.o. female. Patient is being seen today for physical. Well Adult Physical Patient here for a comprehensive physical exam.The patient reports no problems Concerns: Do you take any herbs or supplements that were not prescribed by a doctor? no Are you taking calcium supplements? no - taking prentaal Are you taking aspirin daily? no History: LMP: No LMP recorded. Patient is . 12 weeks . Chronic conditions: none Dr. Brigido Denins - with [facility] Last labs: No results found for: WBC , HGB , HCT , MCV , LABPLAT Chemistry Lab Results Component Value Date SODIUM 135 12/29/2023 POTASSIUM 4.5 12/17/2022 CHLORIDE 101 12/29/2023 CO2 23 12/29/2023 ANIONGAP 9 12/17/2022 BUNSER 9 12/29/2023 CREATININE 0.64 12/29/2023 GLUCOSE 71 12/29/2023 CALCIUM 9.2 12/29/2023 BILITOT 0.5 12/17/2022 ALBUMIN 4.6 12/17/2022 GFRNAA 92 12/17/2022 ALKPHOS 47 12/17/2022 AST 19 12/17/2022 ALT 22 12/17/2022 Patient Active Problem List Diagnosis Chondromalacia, patella, right Hyperhidrosis Annual physical exam HOME MEDICATIONS : vit 18-zetr-qwiof-dha 27mg iron- 800 mcg-250 mg capsule glycopyrrolate (ROBINUL) 2 mg tablet No Known Allergies BP 100/60 (BP Location: Right arm, Patient Position: Sitting) Pulse 90 Temp 36.7 ??C (98.1 ??F)(Temporal) Resp 18 Ht 160 cm (5' 3 ) Wt 64.1 kg (141 lb 6.4 oz) SpO2 98% BMI 25.05 kg/m?? Review of Systems Constitutional: Negative for activity change, fatigue and fever. HENT: Negative for congestion, ear pain, postnasal drip, sinus pressure, sore throat and trouble swallowing. Eyes: Negative for redness and visual disturbance. Respiratory: Negative for cough, chest tightness, shortness of breath and wheezing. Cardiovascular: Negative for chest pain, palpitations and leg swelling. Gastrointestinal: Negative for abdominal pain, constipation, diarrhea, nausea and vomiting. Genitourinary: Negative. Musculoskeletal: Negative for back pain and myalgias. Skin: Negative for rash and wound. Neurological: Negative for syncope and headaches. Psychiatric/Behavioral: Negative. Physical Exam Constitutional: General: She is not in acute distress. Appearance: Normal appearance. She is well-developed. HENT: Head: Normocephalic. Right Ear: Tympanic membrane, ear canal and external ear normal. Left Ear: Tympanic membrane, ear canal and external ear normal. Mouth/Throat: Pharynx: No oropharyngeal exudate or posterior oropharyngeal erythema. Eyes: Conjunctiva/sclera: Conjunctivae normal. Neck: Thyroid: No thyromegaly. Trachea: No tracheal deviation. Cardiovascular: Rate and Rhythm: Normal rate and regular rhythm. Heart sounds: Normal heart sounds. No murmur heard. No friction rub. Pulmonary: Effort: Pulmonary effort is normal. No respiratory distress. Breath sounds: Normal breath sounds. No wheezing or rales. Musculoskeletal: Cervical back: Neck supple. Right lower leg: No edema. Left lower leg: No edema. Lymphadenopathy: Cervical: No cervical adenopathy. Skin: General: Skin is warm and dry. Neurological: Mental Status: She is alert and oriented to person, place, and time. Psychiatric: Mood and Affect: Mood normal. Behavior: Behavior normal. Thought Content: Thought content normal. Judgment: Judgment normal. Assessment/Plan Diagnoses and all orders for this visit: Annual physical exam (Primary) Assessment & Plan: -Recommended: Healthy diet. Avoiding junk food/fast food. -30 minutes of exercise most days of the week. Increase to 45 minutes for weight loss. Health Maintenance reviewed - labs for insurance - insurance physical form filled out. -Influenza vaccine every year Recommend: - Topic Date Due DTaP/Tdap/Td Vaccine (1 - Tdap) 07/14/2021 -F/u in 1 year for Annual PE or sooner if needed -continue to follow with OB Orders: - Lipid panel; Future - Basic metabolic panel; Future Other orders - Flu Vaccine Tri 6m+ IM - Flulaval/Fluarix/Fluzone Bhavya Oquendo NP MA COORDINATOR documented in this encounter Miscellaneous Notes * Result Encounter Note - Bhavya Oquendo NP - 12/30/2023 7:39 AM CST Cholesterol and glucose were all normal MA COORDINATOR * Assessment & Plan Note - Bhavya Oquendo NP - 12/28/2023 1:53 PM CSTAssociated Problem(s): Annual physical exam -Recommended: Healthy diet. Avoiding junk food/fast food. -30 minutes of exercise most days of the week. Increase to 45 minutes for weight loss. Health Maintenance reviewed - labs for insurance - insurance physical form filled out. -Influenza vaccine every year Recommend: - Topic Date Due DTaP/Tdap/Td Vaccine (1 - Tdap) 07/14/2021 -F/u in 1 year for Annual PE or sooner if needed -continue to follow with OB MA COORDINATOR MA COORDINATOR documented in this encounter Plan of Treatment Not on file documented as of this encounter Procedures Procedure Name Priority Date/Time Associated Diagnosis Comments LIPID PANEL Routine 12/29/2023 10:02 AM TRAUMA COORDINATOR Annual physical exam BASIC METABOLIC PANEL Routine 12/29/2023 10:02 AM TRAUMA COORDINATOR Annual physical exam documented in this encounter Results * Basic metabolic panel (12/29/2023 10:02 AM TRAUMA COORDINATOR) Glucose 71 70 - 99 mg/dL [facility] - 01 BUN 9 6 - 20 mg/dL [facility] - 01 Creatinine, Serum 0.64 0.57 - 1.00 mg/dL [facility] - 01 eGFR 121 >59 mL/min/1.73 [facility] - 01 BUN/creat ratio 14 9 - 23 [facility] - 01 Sodium 135 134 - 144 mmol/L [facility] - 01 Potassium, sr 4.5 3.5 - 5.2 mmol/L [facility] - 01 Chloride 101 96 - 106 mmol/L [facility] - 01 CO2 23 20 - 29 mmol/L [facility] - 01 Calcium 9.2 8.7 - 10.2 mg/dL [facility] - 01 Blood 12/29/2023 10:0 2 AM TRAUMA COORDINATOR 12/29/2023 Narrative [facility] - 12/30/2023 1:07 AM TRAUMA COORDINATOR Performed at: ??01 - [facility] [address] ??[id number] Cotton Weigher Operator: Bladimir Taylor PhD, Phone: ??[phone] Bhavya Oquendo NP LAB BLOOD ORDERABLES Final Resul t [facility] - 01 * Lipid panel (12/29/2023 10:02 AM TRAUMA COORDINATOR) Cholesterol 163 100 - 199 mg/dL [facility] - 01 Triglycerides 137 0 - 149 mg/dL [facility] - 01 HDL Cholesterol 61 >39 mg/dL [facility] - 01 VLDL 24 5 - 40 mg/dL [facility] - 01 LDL, calculated 78 0 - 99 mg/dL [facility] - 01 Blood 12/29/2023 10:0 2 AM TRAUMA COORDINATOR 12/29/2023 Narrative [facility] - 12/30/2023 1:07 AM TRAUMA COORDINATOR Performed at: ??01 - [facility] [address] ??[id number] Cotton Weigher Operator: Bladimir Taylor PhD, Phone: ??[phone] us Bhavya Oquendo NP LAB BLOOD ORDERABLES Final Resul t [facility] - 01 documented in this encounter Visit Diagnoses Diagnosis Annual physical exam- Primary Routine general medical examination at a health care facility documented in this encounter Historical Medications * This list may reflect changes made after this encounter. vit 38-bnpa-ppfse-dha 27mg iron- 800 mcg-250 mg capsule Take by mouth added in this encounter Orders Immunization/Injection Count Last Ordered Date First Ordered Date FLU VACCINE TRI (6 M OS UP) PF - FLULAVAL/FLUARIX/FLUZONE 1 12/28/2023 documented in this encounter Care Teams Billiard Table Repairer Relationship Specialty Start Date End Date Bhavya Oquendo NP [address] [place] [address] PCP - General Family Medicine 12/28/23 Valentin Rosenberg MD [address] [facility] [address] [address] Referring Physician Obstetrics and Gynecology 12/07/22 Tejas Dejesus MD [address] [place] [place] [address] Referring Physician Dermatology 12/07/22 documented as of this encounter
--- OUTSIDE RECORDS SUMMARY | 2024-02-08 18:19 | XMS_ITS | Encounter Summary ---
Author Organization [facility] Healthcare Address [address] [place] [address] Care Team Providers Care Bread Oven Operator Name Role Phone Martha Mccartney MD Primary Care Provider Valentin Rosenberg MD Unavailable Tejas Dejesus MD Unavailable [phone] Reason for Visit * Reason Onset Date Comments new referral for endocrinology 02/17/2023 Encounter Details Date Type Department Care Team (Late st Contact Info) Description 02/17/2023 Telephone [facility] [address] [address] [place] [address] [address] new referral for endocrinology Social History Tobacco Use Types Packs/Day Years Used Date Smoking Tobacco: Never Passive Smoke Exposure: Past Smokeless Tobacco: Never Passive Exposure Comments:pa rents smoked Alcohol Use Standard Drinks/Week Comments Yes 0 (1 standard drink = 0.6 oz pur e alcohol) PHQ-2 Answer Date Recorded PHQ-2 Total Score (If total score is 3 or more points, staff should administer the PHQ-9) 0 12/07/2022 Comments No Sex and Gender Information Value Date Recorded Sex Assigned at Not on file Legal Sex Female 9:22 PM CLINICAL OPERATIONS SPECIALIST Gender Identity Not on file Sexual Orientation Not on file documented as of this encounter Miscellaneous Notes * Telephone Encounter - Cadence Louis - 02/17/2023 3:19 PM CST Patient referred to endocrinology. Called patient lmom mailed new patient referral letter ICAL OPERATIONS SPECIALIST documented in this encounter Plan of Treatment Not on file documented as of this encounter Visit Diagnoses Not on filedocumented in this encounter Care Teams Bread Oven Operator Relationship Specialty Start Date End Date Martha Mccartney MD PCP - General Family Medicine 11/18/22 12/27/23 Valentin Rosenberg MD [address] [facility] [address] [address] Referring Physician Obstetrics and Gynecology 12/07/22 Tejas Dejesus MD [address] [place] [address] Referring Physician Dermatology 12/07/22 documented as of this encounter
--- OUTSIDE RECORDS SUMMARY | 2024-02-08 18:19 | XMS_ITS | Encounter Summary ---
Author Organization [facility] Healthcare Address [address] [place] [address] Care Team Providers Care Hydraulic Blocker Name Role Phone Martha Rogers MD Primary Care Provider Valentin Rosenberg MD Unavailable [phone] Tejas Dejesus MD Unavailable [phone] Reason for Visit * Reason Comments Test Results Patient is here for a follow up of her lab results. Encounter Details Date Type Department Care Team (Latest Contact Info) Description 01/12/2023 9:00 AM RN ICU Office Visit [facility] Primary Care at [address] [address] Martha Rogers MD [address] [place] [address] [address] [place] [address] Subclinical hyperthyroidism (Primary Dx); Encounter for preconception consultation Social History Tobacco Use Types Packs/Day Years [...] on file Legal Sex Female 9:22 PM RN ICU Gender Identity Not on file Sexual Orientation Not on file documented as of this encounter Last Filed Vital Signs Vital Sign Reading Time Taken Comments Blood Pressure 92/60 01/12/2023 9:07 AM RN ICU Pulse 85 01/12/2023 9:07 AM RN ICU Temperature - - Respiratory Rate - - Oxygen Saturation - - Inhaled Oxygen Concentration - - Weight 61.2 kg (135 lb) 01/12/2023 9:07 AM RN ICU Height 160 cm (5' 3 ) 01/12/2023 9:07 AM RN ICU Body Mass Index 23.91 01/12/2023 9:07 AM RN ICU documented in this encounter Patient Instructions * Patient Instructions* Martha Rogers MD - 01/12/2023 9:00 AM RN ICU [email or web address] Link to patient hand out on subclinical hyperthyroidism Endocrinology scheduling - New Patients: [phone] ICU ICU documented in this encounter Progress Notes * Martha Rogers MD - 01/12/2023 9:00 AM CST SUBJECTIVE: Alexsandra Loyd is a 33 y.o. female here for follow up visit Had labs recently by professor of french as part of preconception evaluation. Patient has been unable to get a hold her medical operations supervisor to go over the results and recommendations. She is here today given there is some abnormal findings and she has questions. Patient's send a copy of her results through [employer] TSH was very slightly suppressed but the free T3 and T4 were normal TSH 0.327 (low), FT4 1.33, Free T3 3.4 Patient has a degree of chronic mild anxiety but denies any recent worsening. She does have occasional hot flashes/night sweats but denies excessive temperature intolerance. She denies any heart racing, palpitations. Denies any tremors. No recent worsening her anxiety. Denies any visual changes. Denies fevers or chills. No chest pain. Denies any neck pain or swelling. Denies signs of thyroid enlargement Patient is worried that the subclinical hyperthyroidism noted on labs could affect her ability to conceive and wonders if it needs to be addressed Current Outpatient Medications on File Prior to Visit Medication Sig Dispense Refill glycopyrrolate (ROBINUL) 2 mg tablet Take 1 tablet (2 mg total) by mouth daily No current facility-administered medications on file prior to visit. No Known Allergies Social History Tobacco Use Smoking status: Never Passive exposure: Past (parents smoked) Smokeless tobacco: Never Substance and Sexual Activity Drug use: Yes Frequency: 2.0 times per week Types: Alcohol Sexual activity: Yes Alcohol Use: Not on file OBJECTIVE: Vitals: 01/12/23 0907 BP: 92/60 BP Location: Left arm Patient Position: Sitting Pulse: 85 Weight: 61.2 kg (135 lb) Height: 160 cm (5' 3 ) Body mass index is 23.91 kg/m??. Appears: alert, well appearing, and in no distress. No significant exophthalmos Neck: supple, no significant adenopathy, thyroid exam: I do not appreciate any definitive thyromegaly. No thyroid nodules were appreciated Lungs: clear to auscultation, no wheezes, rales, or rhonchi, no tachypnea, retractions, or cyanosis CV exam: regular rate and rhythm, normal S1 and S2, no murmurs ASSESSMENT & PLAN: Diagnoses and all orders for this visit: Subclinical hyperthyroidism (E05.90) (Primary) - Ambulatory referral to Endocrinology; Future Encounter for preconception consultation (Z31.69) - Ambulatory referral to Endocrinology; Future Patient is a degree of subclinical hyperthyroidism based on labs. Her TSH was only slightly low. She is relatively asymptomatic. It is unclear if this is true subclinical hyperthyroidism or part of atransient subacute thyroiditis. As the TSH is only slightly suppressed and she is asymptomatic at likely can just be observed closely but given the concerns about how it may affect her ability to get we will go ahead and send her to Endocrinology to get their opinion. She was provided withher contact information. If signs or symptoms of hyperthyroidism do develop she is to let me know. Questions answered. Patient agrees with plan Advised to call back directly if there are further questions, or if these symptoms fail to improve as anticipated or worsen, or any new concerns arise An After Visit Summary was provided electronically to the patient. Follow up as needed or as previously recommended. Martha Rogers MD ICU documented in this encounter Plan of Treatment Not on file documented as of this encounter Visit Diagnoses Diagnosis Subclinical hyperthyroidism- Primary Thyrotoxicosis without mention of goiter or other cause, without mention of thyrotoxic crisis or storm Encounter for preconception consultation documented in this encounter Care Teams Hydraulic Blocker Relationship Specialty Start Date End Date Martha Rogers MD PCP - General Family Medicine 11/18/22 12/27/23 Valentin Rosenberg MD [address] [facility] [address] [id number] Referring Physician Obstetrics and Gynecology 12/07/22 Tejas Dejesus MD [address] [place] [address] Referring Physician Dermatology 12/07/22 documented as of this encounter
--- OUTSIDE RECORDS SUMMARY | 2024-02-08 18:19 | XMS_ITS | Encounter Summary ---
Author Organization [facility] Healthcare Address [address] [place] [address] Care Team Providers Care Glass Vial Filler Name Role Phone Martha Mccartney MD Primary Care Provider Valentin Rosenberg MD Unavailable [phone] Tejas Dejesus MD Unavailable [phone] Encounter Details Date Type Department Care Team (Latest Contact Info) Description 12/17/2022 9:05 AM COMMIS CHEF - 12/17/2022 11:59 PM COMMIS CHEF Hospital Encounter [facility] [address] [place] [address] Annual physical exam Discharge Disposition: Discharge to home or self care Social History Tobacco Use Types Packs/Day Years [...] on file Legal Sex Female 9:22 PM COMMIS CHEF Gender Identity Not on file Sexual Orientation Not on file documented as of this encounter Medications at Time of Discharge glycopyrrolate (ROBINUL) 2 mg tablet Take 1 tablet (2 mg total) by mouth daily documented as of this encounter Discharge Disposition Disposition Code Departure Means Destination Discharge to home or self care documented in this encounter Plan of Treatment Not on file documented as of this encounter Procedures Procedure Name Priority Date/Time Associated Diagnosis Comments EGFR Routine 12/17/2022 9:05 AM COMMIS CHEF Annual physical exam LIPID PANEL Routine 12/17/2022 9:05 AM COMMIS CHEF Annual physical exam COMPREHENSIVE METABOLIC PANEL Routine 12/17/2022 9:05 AM COMMIS CHEF Annual physical exam documented in this encounter Results * eGFR (12/17/2022 9:05 AM COMMIS CHEF) eGFR 92 mL/min/1. 73 m2 [facility] Comment: Interpretive Data Reference Interval Normal ?>/= 90 mL/min/1.73m2 Mildly decreased* ? 60 - 89 mL/min/1.73m2 Mildly to moderately decreased ?45 - 59 mL/min/1.73m2 Moderately to severely decreased ??30 - 44 mL/min/1.73m2 Severely decreased ?15 - 29 mL/min/1.73m2 Kidney Failure ?< 15 ??mL/min/1.73m2 *Relative to young adult level Estimated glomerular filtration rate is determined by the 2020 CKD-EPI equation recommended by the National Kidney Foundation (A Unifying Approach to GFR Estimation: Recommendations of the NKF-ASK Task Force on Reassessing the Inclusion of Race in Diagnosing Kidney Disease, JASN 2020). The CKD-EPI equation should not be used for patients with unstable renal function and has not been validated in children and those over 70. Current interpretive data was last reviewed 2020. Blood 12/17/2022 9:05 AM COMMIS CHEF 12/17/2022 3:10 PM COMMIS CHEF us Martha Mccartney MD LAB BLOOD ORDERABLES F inal Result [facility] [address] [facility] Department [place] [address] * Lipid panel (12/17/2022 9:05 AM COMMIS CHEF) [facility] Cholesterol 178 30 - 199 mg/dL [facility] Comment: Interpretive Data Ages < or = 19 years ??Acceptable: ? <170 mg/dL ??Borderline high: ??170-199 mg/dL ??High: ? >or= 200 mg/dL Ages > or = 20 years ??Desirable: ?<200 mg/dL ??Borderline high: ??200-239 mg/dL ??High: ? >or= 240 mg/dL Literature References: 1. Expert Panel on Integrated Guidelines for Cardiovascular Health and Risk Reduction in Children and Adolescents. Pediatrics 2011;128:S213 2. NCEP Expert Panel. Circulation 2004;110:227 Current Interpretive Data was last revised on 2017. Triglycerides 47 <=149 mg/dL [facility] Comment: Interpretive Data Ages < or = 9 years ??Acceptable: ? <75 mg/dL ??Borderline high: ??75-99 mg/dL ??High: ? >or= 100 mg/dL Ages 10 to 20 years ??Acceptable: ? <90 mg/dL ??Borderline high: ??90-129 mg/dL ??High: ? >or= 130 mg/dL Ages > or = 20 years ??Desirable: ?<150 mg/dL ??Borderline high: ??150-199 mg/dL ??High: ? 200-499 mg/dL ?Very high: ?? >or= 499 mg/dL Literature References: 1. Expert Panel on Integrated Guidelines for Cardiovascular Health and Risk Reduction in Children and Adolescents. Pediatrics 2011;128:S213 2. NCEP Expert Panel. Circulation 2004;110:227 Current Interpretive Data was last revised on 2017. HDL 72 >=40 mg/dL [facility] Comment: Interpretive Data Ages < or = 19 years ??Acceptable: ? >45 mg/dL ??Borderline low: ?? 40-45 mg/dL ??Low: ? <40 mg/dL Ages > or = 20 years ??Desirable: ?>or= 60 mg/dL ??Low: ? <40 mg/dL Literature References: 1. Expert Panel on Integrated Guidelines for Cardiovascular Health and Risk Reduction in Children and Adolescents. Pediatrics 2011;128:S213 2. NCEP Expert Panel. Circulation 2004;110:227 Current Interpretive Data was last revised on 2017. LDL, calculated 97 <=129 mg/dL [facility] Comment: Interpretive Data Ages < or = 19 years ??Acceptable: ? <110 mg/dL ??Borderline high: ??110-129 mg/dL ??High: ?>or= 130 mg/dL Ages > or = 20 years ??Optimal: ? <100 mg/dL ??Near optimal: ?100-129 mg/dL ??Borderline high: ?? 130-159 mg/dL ??High: ?>160 mg/dL Literature References: 1. Expert Panel on Integrated Guidelines for Cardiovascular Health and Risk Reduction in Children and Adolescents. Pediatrics 2011;128:S213 2. NCEP Expert Panel. Circulation 2004;110:227 Current Interpretive Data was last revised on 2017. Non-HDL Cholesterol 106 mg/dL [facility] Comment: Interpretive Data Ages < or = 19 years ??Acceptable: ?<120 mg/dL ??Borderline high: ??120-144 mg/dL ??High: ?>145 mg/dL Ages > or = 20 years ??When triglycerides are >200 mg/dL, Non-HDL cholesterol is a secondary target of ? therapy with treatment goals that are 30 mg/dL greater than the LDL cholesterol target. ? Literature References: 1. Expert Panel on Integrated Guidelines for Cardiovascular Health and Risk Reduction in Children and Adolescents. Pediatrics 2011;128:S213 2. NCEP Expert Panel. Circulation 2004;110:227 Current Interpretive Data was last revised on 2017. Chol/HDL ratio 2 [facility] Blood 12/17/2022 9:05 AM COMMIS CHEF 12/17/2022 3:04 PM COMMIS CHEF Martha Mccartney MD LAB BLOOD ORDERABLES F inal Result [facility] [address] Department [place] [address] * Comprehensive metabolic panel (12/17/2022 9:05 AM COMMIS CHEF) Sodium 142 135 - 145 mmol/L [facility] Potassium, pl 4.5 3.3 - 4.9 mmol/L [facility] Chloride 105 97 - 110 mmol/L [facility] CO2 28 22 - 32 mmol/L [facility] Anion gap 9 2 - 15 mmol/L [facility] BUN 11 6 - 25 mg/dL [facility] Creatinine 0.87 0.60 - 1.10 mg/dL [facility] Glucose 86 70 - 199 mg/dL [facility] Comment: Interpretive Data Fasting glucose >/= 126 mg/dl is diagnostic for diabetes. ?? Fasting is defined as no caloric intake for at least 8 hours. Fasting glucose between 100 mg/dl to 125 mg/dl is diagnostic of prediabetes. In a patient with classic symptoms of hyperglycemia or hyperglycemic crisis, a random glucose >/= 200 mg/dl is diagnostic for diabetes. In the absence of unequivocal hyperglycemia, results should be confirmed by repeat testing. The classification and Diagnosis of Diabetes Diabetes Care 202; 46: S19-S40. Current interpretive data was last revised 2022. Calcium 9.8 8.5 - 10.3 mg/dL [facility] Bilirubin, total 0.5 0.1 - 1.2 mg/dL [facility] Protein, pl 6.9 6.5 - 8.5 g/dL [facility] Albumin 4.6 3.5 - 5.0 g/dL [facility] Alk phos 47 40 - 130 Units/L [facility] ALT 22 7 - 45 Units/L [facility] AST 19 10 - 45 Units/L [facility] Blood 12/17/2022 9:05 AM COMMIS CHEF 12/17/2022 3:04 PM COMMIS CHEF us Martha Mccartney MD LAB BLOOD ORDERABLES F inal Result [facility] [address] Department [place] [address] documented in this encounter Visit Diagnoses Diagnosis Annual physical exam Routine general medical examination at a health care facility documented in this encounter Care Teams Glass Vial Filler Relationship Specialty Start Date End Date Martha Mccartney MD PCP - General Family Medicine 11/18/22 12/27/23 Valentin Rosenberg MD [address] [facility] [address] [facility] [address] [place], [place] [id number] Referring Physician Obstetrics and Gynecology 12/07/22 Tejas Dejesus MD [address] [place] [address] Referring Physician Dermatology 12/07/22 documented as of this encounter
--- OUTSIDE RECORDS SUMMARY | 2024-02-08 18:19 | XMS_ITS | Clinical Summary ---
Author Organization [facility] Address [address] [facility] [address] [place] [address] Phone Care Team Providers Care Well Logging Operator Mud Analysis Name Role Phone Valentin Rosenberg MD Unavailable [phone] Tejas Dejesus MD Unavailable [phone] Bhavya Oquendo NP Primary Care Provider [phone] Allergies No known active allergies Medications glycopyrrolate (ROBINUL) 2 mg tablet Take 1 tablet (2 mg total) by mouth daily Active vit 91-ahon-iuhlh-dh a 27mg iron- 800 mcg-250 mg capsule Take by mouth Active Active Problems Problem Noted Date Diagnosed Date Annual physical exam 12/28/2023 Assessment & Plan (01/02/2024 8:42 AM SET DESIGNER): -Recommended: Healthy diet. Avoiding junk food/fast food. 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 Encounters Date Type Department Care Team Description 12/28/2023 1:30 PM SET DESIGNER Office Visit [facility] Primary Care at [address] [address] Bhavya Oquendo NP Annual physical exam (Primary Dx) from Last 3 Months Immunizations Name Administration Dates Next Due Influenza, Quadrivalent, Spl it, Preservative Free, Intramuscular 12/07/2022 Influenza, Trivalent, IM (MDV) 02/16/2012 Influenza, Trivalent, Preservative Free, Intramu scular 12/28/2023 TD Preservative Free 07/13/2021 Surgical History Surgery Date Site/Laterality Comments NO PAST SURGERIES Medical History Medical History Date Comments Anxiety Hyperhidrosis Family History Medical History Relation Name Comments No Known Problems Father Colon cancer Maternal Grandfather Cancer Maternal Grandmother unsure of primary No Known Problems Mother Arthritis Other Cancer Paternal Grandfather unsure of primary Cancer Paternal Grandmother unsure of primary Relation Name Status Comments Father Maternal Grandfather Maternal Grandmother Mother Other Paternal Grandfather Paternal Grandmother Social History Tobacco Use Types Packs/Day Years Used Date Smoking Tobacco: Never Passive Smoke Exposure: Past Smokeless Tobacco: Never Tobacco Cessation:Counseling Given: Not Answered Passive Exposure Comments:parents smoked Alcohol Use Standard Drinks/Week Comments Yes 0 (1 standard drink = 0.6 oz pur e alcohol) PHQ-2 Answer Date Recorded PHQ-2 Total Score (If total score is 3 or more points, staff should administer the PHQ-9) 0 12/28/2023 Comments Yes Sex and Gender Information Value Date Recorded Sex Assigned at Not on file Legal Sex Female 9:22 PM SET DESIGNER Gender Identity Not on file Sexual Orientation Not on file Obstetrics History Para Term AB IAB SAB Ectopic Multiple Livin g Live Births 1 Date Outcome GA Total Labor Labor/2nd/3rd Weight Sex Type Anes PTL Francy A1 A5 Name Clin Current Last Filed Vital Signs Vital Sign Reading Time Taken Comments Blood Pressure 100/60 12/28/2023 1:36 PM SET DESIGNER Pulse 90 12/28/2023 1:36 PM SET DESIGNER Temperature 36.7 ??C (98.1 ??F) 12/28/2023 1:36 PM CS T Respiratory Rate 18 12/28/2023 1:36 PM SET DESIGNER Oxygen Saturation 98% 12/28/2023 1:36 PM SET DESIGNER Inhaled Oxygen Concentration - - Weight 64.1 kg (141 lb 6.4 oz) 12/28/2023 1:36 P M SET DESIGNER Height 160 cm (5' 3 ) 12/28/2023 1:36 PM SET DESIGNER Body Mass Index 25.05 12/28/2023 1:36 PM SET DESIGNER Plan of Treatment Health Maintenance Due Date Last Done Comments Cervical Cancer Screening 1992 Hepatitis C Screening 1992 Hepatitis B Screening 01/06/2010 DTaP/Tdap/Td Vaccine (1 - Tdap) 07/14/2021 07/13/2021 Covid-19 Vaccine (3 - season) 2023 05/11/2020, 04/19/2020 Depression Screening 12/27/2024 12/28/2023, 12/07/2022 Regular Well Visit/Exam 18-64 12/27/2024 12/28/2023, 12/07/2022 Influenza Vaccine Completed 12/28/2023, 12/07/2022, 02/16/2012 HPV Vaccines Aged Out No longer eligi ble based on patient's age to complete this topic Pneumococcal vaccine <65 Aged Out No longer eligible based on patient's age to complete this topic Varicella Vaccines Discontinued Procedures Procedure Name Priority Date/Time Associated Diagnosis Comments BASIC METABOLIC PANEL Routine 12/29/2023 10:02 AM SET DESIGNER Annual physical exam LIPID PANEL Routine 12/29/2023 10:02 AM SET DESIGNER Annual physical exam from Last 3 Months Results * Lipid panel (12/29/2023 10:02 AM SET DESIGNER) Cholesterol 163 100 - 199 mg/dL [facility] - 01 Triglycerides 137 0 - 149 mg/dL [facility] - 01 HDL Cholesterol 61 >39 mg/dL [facility] - 01 VLDL 24 5 - 40 mg/dL [facility] - 01 LDL, calculated 78 0 - 99 mg/dL [facility] - 01 Blood 12/29/2023 10:0 2 AM SET DESIGNER 12/29/2023 Narrative [facility] - 12/30/2023 1:07 AM SET DESIGNER Performed at: ??01 - [facility] [address] ??[id number] Pet Counselor: Bladimir Taylor PhD, Phone: ??[phone] Bhavya Oquendo NP LAB BLOOD ORDERABLES Final Resul t Performing Organization Address [facility] de Phone Number [facility] * Basic metabolic panel (12/29/2023 10:02 AM SET DESIGNER) Glucose 71 70 - 99 mg/dL [facility] [...] - 01 Blood 12/29/2023 10:0 2 AM SET DESIGNER 12/29/2023 Narrative [facility] - 12/30/2023 1:07 AM SET DESIGNER Performed at: ??01 - [facility] [address] ??[id number] Pet Counselor: Bladimir Taylor PhD, Phone: ??[phone] Bhavya Oquendo NP LAB BLOOD ORDERABLES Final Resul t Performing Organization Address [facility] Co de Phone Number [facility] - 01 from Last 3 Months Insurance [facility] Care Teams Well Logging Operator Mud Analysis Relationship Specialty Start Date End Date Bhavya Oquendo NP [address] [place] [address] PCP - General Family Medicine 12/28/23 Valentin Rosenberg MD [address] [place] [address] Referring Physician Obstetrics and Gynecology 12/07/22 Tejas Dejesus MD [address] [place] [address] Referring Physician Dermatology 12/07/22
--- OUTSIDE RECORDS SUMMARY | 2024-02-08 18:19 | XMS_ITS | Referral Summary ---
Author Organization [facility] Address [address] [place] [address] Phone Care Team Providers Care Microsoft Bi Architect Name Role Phone Valentin Rosenberg MD Unavailable [phone] Tejas Dejesus MD Unavailable [phone] Bhavya Oquendo NP Primary Care Provider [phone] Encounters Date Type Department Care Team Description 12/28/2023 1:30 PM FORM GRADER OPERATOR Office Visit [facility] Primary Care at [address] [address] Bhavya Oquendo NP Annual physical exam (Primary Dx) from Last 3 Months Allergies No known active allergies Medications glycopyrrolate (ROBINUL) 2 mg tablet Take 1 tablet (2 mg total) by mouth daily Active vit 54-tsxg-krcax-dh a 27mg iron- 800 mcg-250 mg capsule Take by mouth Active Active Problems Problem Noted Date Diagnosed Date Annual physical exam 12/28/2023 Assessment & Plan (01/02/2024 8:42 AM FORM GRADER OPERATOR): -Recommended: Healthy diet. Avoiding junk food/fast food. 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 Comments Yes Immunizations Name Administration Dates Next Due Influenza, Quadrivalent, Spl it, Preservative Free, Intramuscular 12/07/2022 Influenza, Trivalent, IM (MDV) 02/16/2012 Influenza, Trivalent, Preservative Free, Intramu scular 12/28/2023 TD Preservative Free 07/13/2021 Social History Tobacco Use Types Packs/Day Years [...] on file Legal Sex Female 9:22 PM FORM GRADER OPERATOR Gender Identity Not on file Sexual Orientation Not on file Last Filed Vital Signs Vital Sign Reading Time Taken Comments Blood Pressure 100/60 12/28/2023 1:36 PM FORM GRADER OPERATOR Pulse 90 12/28/2023 1:36 PM FORM GRADER OPERATOR Temperature 36.7 ??C (98.1 ??F) 12/28/2023 1:36 PM CS T Respiratory Rate 18 12/28/2023 1:36 PM FORM GRADER OPERATOR Oxygen Saturation 98% 12/28/2023 1:36 PM FORM GRADER OPERATOR Inhaled Oxygen Concentration - - Weight 64.1 kg (141 lb 6.4 oz) 12/28/2023 1:36 P M FORM GRADER OPERATOR Height 160 cm (5' 3 ) 12/28/2023 1:36 PM FORM GRADER OPERATOR Body Mass Index 25.05 12/28/2023 1:36 PM FORM GRADER OPERATOR Plan of Treatment Not on file Procedures Procedure Name Priority Date/Time Associated Diagnosis Comments BASIC METABOLIC PANEL Routine 12/29/2023 10:02 AM FORM GRADER OPERATOR Annual physical exam LIPID PANEL Routine 12/29/2023 10:02 AM FORM GRADER OPERATOR Annual physical exam from Last 3 Months Results * Lipid panel (12/29/2023 10:02 AM FORM GRADER OPERATOR) Cholesterol 163 100 - 199 mg/dL [facility] - 01 Triglycerides 137 0 - 149 mg/dL [facility] - 01 HDL Cholesterol 61 >39 mg/dL [facility] - 01 VLDL 24 5 - 40 mg/dL [facility] - 01 LDL, calculated 78 0 - 99 mg/dL [facility] - 01 Blood 12/29/2023 10:0 2 AM FORM GRADER OPERATOR 12/29/2023 Narrative [facility] - 12/30/2023 1:07 AM FORM GRADER OPERATOR Performed at: ??01 - [facility] [address] ??[id number] Casket Assembler Metal: Bladimir Taylor PhD, Phone: ??[phone] Bhavya Oquendo NP LAB BLOOD ORDERABLES Final Resul t [facility] - 01 * Basic metabolic panel (12/29/2023 10:02 AM FORM GRADER OPERATOR) Glucose 71 70 - 99 mg/dL [facility] [...] - 01 Blood 12/29/2023 10:0 2 AM FORM GRADER OPERATOR 12/29/2023 Narrative [facility] - 12/30/2023 1:07 AM FORM GRADER OPERATOR Performed at: ?? - [facility] [address] ??[id number] Casket Assembler Metal: Bladimir Taylor PhD, Phone: ??[phone] Bhavya Oquendo BUYING AGENT LAB BLOOD ORDERABLES Final Resul t [facility] - 01 from Last 3 Months Insurance [facility] Care Teams Microsoft Bi Architect Relationship Specialty Start Date End Date Bhavya Oquendo NP [address] [facility] [place] [address] PCP - General Family Medicine 12/28/23 Valentin Rosenberg MD [address] [place] [address] Referring Physician Obstetrics and Gynecology 12/07/22 Tejas Dejesus MD [address] [place] [address] Referring Physician Dermatology 12/07/22
--- OUTSIDE RECORDS SUMMARY | 2024-02-08 18:20 | XMS_ITS | Encounter Summary ---
Author Organization [facility] Healthcare Address [address] [place] [address] Care Team Providers Care Rn Security Name Role Phone Martha Rogers MD Primary Care Provider Reason for Visit * Reason Comments Pain DOI: Approx 06/2022 (no DANGELO, gradual pain) Encounter Details Date Type Department Care Team (Late st Contact Info) Description 11/18/2022 10:00 AM CDT Office Visit [facility] Sports Medicine and Primary Care at [address] [place] [address] Martha Rogers MD [address] [place] [address] [address] [place] [address] Chronic periscapular pain on left side (Primary Dx); Trigger point of shoulder region, left; Scapular dyskinesis Social History Tobacco Use Types Packs/Day Years Used Date Smoking Tobacco: Never Alcohol Use Standard Drinks/Week Comments Yes 0 (1 standard drink = 0.6 oz pur e alcohol) Comments Unknown Sex and Gender Information Value Date Recorded Sex Assigned at Not on file 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 Gender Identity Not on file Sexual Orientation Not on file documented as of this encounter Last Filed Vital Signs Vital Sign Reading Time Taken Comments Blood Pressure 108/76 11/18/2022 9:54 AM CDT Pulse 97 11/18/2022 9:54 AM CDT Temperature - - Respiratory Rate - - Oxygen Saturation - - Inhaled Oxygen Concentration - - Weight 61.8 kg (136 lb 3.2 oz) 11/18/2022 9:54 A M CDT Height 160 cm (5' 2.99 ) 11/18/2022 9:54 AM CDT Body Mass Index 24.13 11/18/2022 9:54 AM CDT documented in this encounter Patient Instructions * Patient Instructions* Martha Rogers MD - 11/18/2022 10:00 AM CDT Trial of PT Ok for massage and manual therapies but should be an adjunct to strengthening exercises See me back in 8 weeks documented in this encounter Progress Notes * Martha Rogers MD - 11/18/2022 10:00 AM CDT Images from the original note were not included. [facility] Primary [facility] Medicine at [facility] Consult PCP: Martha Rogers MD Chief Complaint Patient presents with Left Shoulder - Pain DOI: Approx 06/2022 (no DANGELO, gradual pain) NEW PATIENT VISIT Subjective CHIEF COMPLAINT She had concerns including Pain of the Left Shoulder (DOI: Approx 06/2022 (no DANGELO, gradual pain)). HISTORY OF PRESENT ILLINESS Pain to left scapula since June. No real injury or trauma. Had done orange theory for years but no change in activity that would have provoked Dull ache. Pain with lifting arm, up, pulling door open. Tx tried - ibuprofen with some benefit. Has tried massage, acupuncture, chiropractor with no real benefit. Some paresthesias in scapula. Shoulder area feels weak. No real neck pain. No PT tried. 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 [employer] Patient notes that use of a percussion massage her at times can provide temporary benefit with the muscle do seem to loosen up but it always seems to recur Pain Assessment Pain Assessment: 0-10 Pain Score: (Now: 3/10, Worst: 4/10) Pain Location: Shoulder Pain Orientation: Left Pain Descriptors: Aching, Dull, Discomfort, Sharp, Numbness, Sore, Tender Pain Frequency: Constant/continuous Pain Onset: Gradual Date Pain First Started: (Approx 06/2022) Clinical Progression: Gradually worsening Aggravating Factors: Bending, Stretching, Straightening, Exercise Result of Injury: No Work-Related Injury: No Patient's Stated Pain Goal: No pain Pain Interventions: Medication (See MAR), Home medication, Other (Comment), Massage, Heat applied, Warm pack, Rest, Acupuncture (PT, Chiropractor, Lasers, E-stim) No real Hx of injury or neck. Was a flier for cheerleader in past and had to have more flexibility to shoulder but no acute trauma. PAST MEDICAL HISTORY She has a past medical history of Anxiety. PAST SURGICAL HISTORY She has no past surgical history on file. MEDICATIONS She has a current medication list which includes the following prescription(s): glycopyrrolate. ALLERGIES She has No Known Allergies. SOCIAL HISTORY She reports that she has never smoked. She does not have any smokeless tobacco history on file. No alcohol history on file. FAMILY HISTORY Family History Problem Relation Age of Onset Arthritis Other REVIEW OF SYSTEMS Review of Systems Objective PHYSICAL EXAM BP 108/76 Pulse 97 Ht 160 cm (5' 2.99 ) Wt 61.8 kg (136 lb 3.2 oz) BMI 24.13 kg/m?? Ortho Exam Neck: no tenderness to palpation of spinous processes, paraspinal muscles, or bilateral trapezius. Full ROM in forward flexion, extension, lateral rotation, and bilateral side-bending without pain. Negative bilateral Spurling's test. 5/5 strength in all major muscle groups bilateral upper extremities. Sensation grossly intact to light touch in all dermatomes distally bilateral upper extremities. 2+ symmetric bilateral biceps and brachioradialis reflexes. Left scapular region - patient has moderate tenderness to palpation with myofascial trigger points within the upper 3rd of the trapezius as well as the levator scapula. There is some trigger points within the rhomboids but they are less active as minimal tenderness on palpation. Patient has a degree of scapular dyskinesis noted on range of motion with the scapula lagging when she abduct her arm following abduction and forward flexion. There is no scapular winging on wall pushup. She is no real tenderness over the scapular body or the rotator cuff muscle bellies left shoulder: no tenderness to palpation over sternoclavicular joint, clavicle, AC joint, acromion, coracoid, anterior joint line, bicipital groove, deltoid, posterior joint line, scapula. Full active ROM without pain in internal rotation, external rotation, forward flexion, abduction. Negative Curry, Neer, empty can, speeds, cross arm Strength intact on rotator cuff testing without any pain within the shoulder. She did elicit some discomfort to the rhomboid and periscapular musculature with resisted internal and external rotation Assessment/Plan Alexsandra was seen today for pain. Diagnoses and all orders for this visit: Chronic periscapular pain on left side - Ambulatory referral order to Physical Therapy -; Future Trigger point of shoulder region, left - Ambulatory referral order to Physical Therapy -; Future Scapular dyskinesis - Ambulatory referral order to Physical Therapy -; Future Patient's symptoms within the periscapular region of the left side are likely due to a degree of myofascial trigger points as well as some scapular dyskinesis and dysfunction. There is potential possibility this could be an upper C5 cervical radiculopathy though I am unable to provoke any symptoms on Spurling's in the neck exam is somewhat benign. Continue use of massage and manual therapies. At this point she would benefit from doing formal physical therapy to address the musculature. She was given a handout with some scapular stabilization exercises as well. We will plan to see her back after 8 weeks of conservative treatment. If failing to improve with conservative treatment then we may consider obtaining x-rays on her neck and potential need for cervical MRI to rule out potential C4/C5 cervical radiculopathy as a cause of her symptoms. Questions answered. Patient agrees with plan. Patient was advised to look at her computer ergonomics at work to see if there may be any contributing factors. We did discuss proper ergonomics and posture when using computer An After Visit Summary was printed and given to the patient. Follow up 8 weeks Martha Rogers MD documented in this encounter Plan of Treatment Not on file documented as of this encounter Visit Diagnoses Diagnosis Chronic periscapular pain on left side- Primary Trigger point of shoulder region, left Scapular dyskinesis Lack of coordination documented in this encounter Discontinued Medications Medication Sig Discontinue Reason Start Date End Da te norethindrone-e.estradio l-iron (MICROGESTIN 24 FE) 1 mg-20 mcg (24)/75 mg (4) per tablet take 1 tablet by oral route every day 03/04/2015 11/18/2022 phenazopyridine (PYRIDIUM) 200 mg tablet take 1 tablet by oral route 3 times every day after meals as needed 03/04/2015 11/18/2022 documented as of this encounter Historical Medications * This list may reflect changes made after this encounter. glycopyrrolate (ROBINUL) 2 mg tablet Take 1 tablet (2 mg total) by mouth daily added in this encounter Care Teams Rn Security Relationship Specialty Start Date End Date Martha Rogers MD PCP - General Family Medicine 11/18/22 12/27/23 documented as of this encounter
--- OUTSIDE RECORDS SUMMARY | 2024-02-08 18:20 | XMS_ITS | Encounter Summary ---
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 Gender Identity Not on file Sexual Orientation Not on file documented as of this encounter Plan of Treatment Not on file documented as of this encounter Visit Diagnoses Not on filedocumented in this encounter Care Teams Photographer Apprentice Relationship Specialty Start Date End Date Martha Mccartney MD PCP - General Family Medicine 11/18/22 12/27/23 Valentin Rosenberg MD [address] [place] [address] Referring Physician Obstetrics and Gynecology 12/07/22 Tejas Dejesus MD [address] [facility] [address] [facility] [place] [address] Referring Physician Dermatology 12/07/22 documented as of this encounter
--- OUTSIDE RECORDS SUMMARY | 2024-02-08 18:20 | XMS_ITS | Encounter Summary ---
Author Organization [facility] Healthcare Address [address] [place] [address] Care Team Providers Care Customer Assistance Associate Name Role Phone Unavailable Primary Care Provider Unavailabl e Encounter Details Date Type Department Care Team (Late st Contact Info) Description 03/04/2015 5:25 PM [facility] - 03/04/2015 11:59 PM [facility] Encounter [facility] Marisela Meadows MD [address] [place] [address] Urinary tract infection Social History Tobacco Use Types Packs/Day Years Used Date Smoking Tobacco: Never Alcohol Use Standard Drinks/Week Comments Yes 0 (1 standard drink = 0.6 oz pur e alcohol) Comments Unknown Sex and Gender Information Value Date Recorded Sex Assigned at Not on file Legal Sex Female 9:22 PM [facility]ER[facility]STER Gender Identity Not on file Sexual Orientation Not on file documented as of this encounter Medications at Time of Discharge norethindrone-e.e stradiol-iron (MICROGESTIN 24 FE) 1 mg-20 mcg (24)/75 mg (4) per tablet take 1 tablet by oral route every day 0 0 03/04/2015 11/18/2022 phenazopyridine (PYRIDIUM) 200 mg tablet take 1 tablet by oral route 3 times every day after meals as needed 10 0 03/04/2015 11/18/2022 documented as of this encounter Plan of Treatment Not on file documented as of this encounter Procedures Procedure Name Priority Date/Time Associated Diagnosis Comments URINE MICROBIOLOGY Routine 03/04/2015 12 :00 AM [facility] documented in this encounter Results * Urine Microbiology (03/04/2015 12:00 AM [facility]) 03/04/2015 Narrative HISTORICAL RESULTS - 03/06/2015 4:51 PM [facility] ?Patient Name: ?APOLLO GROSSMAN ?Med. Rec#: ?? [id number] ?Pt. Acct.#: ??[id number] ?Birthdate: ?? 1990 ?Age / Sex: ?? 25Y / F ?Location: ?[facility] ([facility] ?Admit Date: ??03/04/2015 ?Discharge Date: ? 03/04/2015 ?Doctor: ?Patient Type: ?CH Ref Lab - Insuran Culture, Urine ? Collected: 03/04/2015 17:25 Specimen: Urine ?? Specimen Source: Clean Voided Specimen Status: Final ??Last Update: 03/06/2015 11:26 Organism ?? 10,000 - 50,000 cfu/ml of ?? Escherichia coli ?$$'s REPRESENT ?- ?IN-PATIENT COST ? - ?- ?Ampicillin ? $$ <=4 ?S ?Cefazolin ? $ 2 ?S ?Gentamicin ?$ <=2 ?S ?Tobramycin ?$ <=2 ?S ?Tetracycline ?$ <=2 ?S ?Ciprofloxacin ? $ <=0.5 ?S ?Nitrofurantoin ?$ <=16 ? S ?Trimeth/Sulfa ? $ ?S ? <=0.5/9.5 ?Amoxicillin/Clav ??$ <=4/2 ?S Organism ?? Less than 10,000 cfu/ml of ?? Gram positive organisms us Historical Provider LAB MICROBIOLOGY - GENERA L ORDERABLES Final Result HISTORICAL RESULTS documented in this encounter Visit Diagnoses Diagnosis Urinary tract infection Urinary tract infection, site not specified documented in this encounter
--- OUTSIDE RECORDS SUMMARY | 2024-02-08 18:20 | XMS_ITS | Encounter Summary ---
Author Organization [facility] Healthcare Address [address] [place] [address] Care Team Providers Care Bushing And Broach Operator Name Role Phone Martha Rogers MD Primary Care Provider Valentin Rosenberg MD Unavailable [phone] Tejas Dejesus MD Unavailable [phone] Reason for Visit * Reason Comments Establish Care Patient is being see n to establish care. Patient reports no current concerns. 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 Gender Identity Not on file Sexual Orientation Not on file documented as of this encounter Last Filed Vital Signs Vital Sign Reading Time Taken Comments Blood Pressure 108/60 12/07/2022 9:57 AM CDT Pulse 61 12/07/2022 9:57 AM CDT Temperature - - Respiratory Rate - - Oxygen Saturation - - Inhaled Oxygen Concentration - - Weight 63.5 kg (140 lb) 12/07/2022 9:57 AM CDT Height 160 cm (5' 3 ) 12/07/2022 9:57 AM CDT Body Mass Index 24.8 12/07/2022 9:57 AM CDT documented in this encounter Patient Instructions * Patient Instructions* Martha Rogers MD - 12/07/2022 10:00 AM CDT Recommendations For A Healthy Lifestyle Routine Screening: Pap smear every 3 years age 21-65 depending on your history Mammogram every 1 years over age 40 Bone density screening at age 65 Diabetes and Cholesterol screening every 3-5 years (starting at age 35, or optional at younger age)if normal, yearly if abnormal or risk factors. Colonoscopy at 45 per new guidelines, and then typically every 5-10 years depending on risk factors. Cologuard is next best alternative if you are low risk for colon cancer and should be repeated every 3 yrs. Yearly eye exam Yearly dental exam. Dentists prefer this to be every 6 months Yearly physical exam with your primary care doctor Immunizations: Yearly Influenza Tetanus, Diphtheria, and Pertussis (Tdap) or Td booster every 10 years Prevnar 20 (strep pneumonia vaccine) after age 65 or at any age if you smoke, have diabetes, or anylung or heart problems. If you do PPSV23, then you may consider getting Prevnar 20 one year later. If you have already completed the PPSV23 (pneumovax) and the PCV 13 (prevnar 13) then you do not need the Prevnar 20 Shingles (Shingrix) vaccine after age 50 - It is a series of 2 shots given 2 to 6 months apart. Cuts risk of shingles by about 90%. Please check with insurance company to check for coverage and if they prefer you get it at our office or at a local pharmacy. Medicare based insurance prefer at the pharmacy. RSV vaccination should be considered in adults 60 and older, especially in those with weakened immune systems or increased risk factors for more significant respiratory illness Please get vaccination against COVID-19, if not already done. A seasonal COVID booster we will likely be recommended every fall/winter for the next few years Other Suggestions: Try to get 30 minutes of aerobic exercise daily. Goal is 150 minutes of moderate physical activity a week Maintain a healthy Body Mass Index of 18.5-25. If overweight, please try to work on gradual weight loss through diet and exercise Please make sure to wear your seat belt regularly Please make sure to wear sunscreen whenever outside for any prolonged length of time Aim for 1000 - 1200 mg of calcium daily: There are 300 mg of calcium in each serving of yogurt, cheese, milk, and cooked greens 400 mcg of Folic Acid if you are of childbearing age. This can help decrease risk of certain types of defects if you were to get Try not to exceed one alcoholic beverage per day Avoid smoking. If you are currently smoking, please stop If you do not hear for my office within 2 weeks of doing lab work, please check [facility] (if active)or reach out to our office for results as we have likely been trying to get a holding you either through [facility], by phone, or by mail.. Please call office during routine office hours if any questions or concerns. Schedule a Follow up Appointment with me in: 1 year for physical documented in this encounter Progress Notes * Martha Rogers MD - 12/07/2022 10:00 AM CDT Chief Complaint Patient presents with Establish Care Patient is being seen to establish care. Patient reports no current concerns. SUBJECTIVE: Alexsandra Loyd is a 32 y.o. female here to establish care and to discuss the following. Patient was previously seen in my sports Medicine Clinic and is now here to establish care as a primary care patient Mild anxiety - never needed medication. Remotely did counseling. Mood currently is doing well PHQ Screening PHQ-2 Total Score (If total score is 3 or more points, staff should administer the PHQ-9): 0 Hyperhidrosis - sees sales representative womens health, Dr. Dejesus. On as needed glycopyrrolate Current Concerns: 1. Needs insurance physical Exercise: orange theory a couple times. Nutrition: tries to watch diet PMH, PSH, and FamHx all updated and reviewed as indicated Current Outpatient Medications Medication Sig Dispense Refill glycopyrrolate (ROBINUL) 2 mg tablet Take 1 tablet (2 mg total) by mouth daily No current facility-administered medications for this visit. Social History Tobacco Use Smoking status: Never Passive exposure: Past (parents smoked) Smokeless tobacco: Never Substance and Sexual Activity Drug use: Yes Frequency: 2.0 times per week Types: Alcohol Sexual activity: Yes Alcohol Use: Not on file No Known Allergies No LMP recorded. Last Pap smear (21-65): sees breakfast supervisor. Has pap scheduled Last mammogram (40+): na Last Colonoscopy (45+, earlier if high risk): na Last Dexa (65+, earlier if high risk): na REVIEW OF SYSTEMS Constitutional: Denies fever, chills Ears, nose, mouth, and throat: Denies nasal discharge, sorethroat Respiratory: Denies cough, dyspnea, wheezing Cardiovascular: Denies chest pain, palpitations. Gastrointestinal: Denies abdominal pain, nausea, vomiting, diarrhea, constipation, bloody stools ormelena Skin: Denies recent rashes Musculoskeletal: periscapular issues persists but in Pt with some benefit Neurological: Denies syncope, dizziness. Denies TIA or stroke-like symptoms Behavioral/Psych: Denies depression. Endocrine: Denies fatigue OBJECTIVE: Vitals: 12/07/22 0957 BP: 108/60 BP Location: Left arm Patient Position: Sitting Pulse: 61 Weight: 63.5 kg (140 lb) Height: 160 cm (5' 3 ) Body mass index is 24.8 kg/m??. General: alert, well appearing, and in no acute distress HEENT: Normocephalic atraumatic. PERRLA, EOMI, no conjunctivitis. Bilateral TM's and external ear canals normal. No cervical adenopathy. Thyroid normal without nodules or thyromegaly. CV exam: regular rate and rhythm, normal S1 and S2, no murmurs, rubs, or gallops appreciated. Respiratory: clear to auscultation bilaterally, no wheezes, rales, or rhonchi, Good aeration. no tachypnea, retractions, or cyanosis Abdominal exam: Soft, non-tender abdomen. No rebound or guarding. No masses or hepatosplenomegaly noted. Neuro: Alert and oriented x 3, Cranial nerves II-XII grossly intact. PERRLA. EOMI. Strength and sensation grossly intact in bilateral upper extremities and bilateral lower extremities. 2+ bilateral patellar reflexes. Grossly non-focal Psych: Normal mood and affect today. Skin: Warm, dry, without significant rash Ext: No cyanosis or clubbing. No peripheral edema. ASSESSMENT & PLAN: Diagnoses and all orders for this visit: Annual physical exam (Z00.00) (Primary) - Lipid panel; Future - Comprehensive metabolic panel; Future Need for vaccination (Z23) - Flu Vaccine Quad PF 6m+ IM - Fluarix / FluLaval / Fluzone Health Maintenance Preventative care counseling/screening: Smoking cessation: na Pap smear (Q3 women 21-30, pap+HPV Q5 women 30-65): up to date per pt. Sees Dr. Rosenberg Mammogram (Q1 women 40+): na Colon cancer screening (adults 45-75): na Osteoporosis screening (women > 65): na Lung Cancer screening (55-80 with 20 pack year Hx): na Healthy Living Tips Low fat, low cholesterol diet rich in lean proteins, whole grains, fruits and vegetables. Limit fast foods and processed foods ACSM activity recs: 150 minutes/week. 30 minutes most days of the week. Vaccinations updated: Tetanus (Tdap Q 10 yr): Td up to date. Had Tdap remotely Shingrix (over age 50): na Influenza (yearly): given Pneumococcal (65+, or if risk factors): na COVID:discussed seasonal boosters See goals in chart Advised to call or return if symptoms worsen or fail to improve as expected, or pt develops any other concerning symptoms. An After Visit Summary was printed and given to the patient. Follow up in 1 yr for physical. We will see her back as planned for her MSK issues Martha Rogers MD documented in this encounter Plan of Treatment Not on file documented as of this encounter Results * Comprehensive metabolic panel (12/17/2022 9:05 AM INSPECTOR REPAIRER) Sodium 142 135 - 145 mmol/L [facility] [...] AST 19 10 - 45 Units/L [facility] Blood 12/17/2022 9:05 AM INSPECTOR REPAIRER 12/17/2022 3:04 PM INSPECTOR REPAIRER Martha Rogers MD LAB BLOOD ORDERABLES F inal Result [facility] [address] Department [place] [address] * Lipid panel (12/17/2022 9:05 AM INSPECTOR REPAIRER) Cholesterol 178 30 - 199 mg/dL [facility] Comment: Interpretive Data Ages < or = [...] 2017. LDL, calculated 97 <=129 mg/dL L[facility]HA[facility] ELIZONDO Comment: Interpretive Data Ages < or = [...] on 2017. Non-HDL Cholesterol 106 mg/dL [facility] ELIZONDO Comment: Interpretive Data Ages < or = [...] last revised on 2017. Chol/HDL ratio 2 LASHAWN Blood 12/17/2022 9:05 AM INSPECTOR REPAIRER 12/17/2022 3:04 PM INSPECTOR REPAIRER Martha Rogers MD LAB BLOOD ORDERABLES F inal Result Performing Organization Address City/State/[facility] Co de Phone Number LASHAWN ELIZONDO [address] Department of Laboratories [place], [place] [id number] documented in this encounter Visit Diagnoses Diagnosis Annual physical exam- Primary Routine general medical examination at a health care facility Need for vaccination Need for prophylactic vaccination and inoculation against unspecified single disease documented in this encounter Orders Immunization/Injection Count Last Ordered Date First Ordered Date FLU VACCINE QUAD PF 6M+ IM - FLUARIX / FLULAVAL / FLUZONE- SYRINGE 1 12/07/2022 documented in this encounter Care Teams Bushing And Broach Operator Relationship Specialty Start Date End Date Martha Rogers MD PCP - General Family Medicine 11/18/22 12/27/23 Valentin Rosenberg MD [address] [place], [place] [id number] Referring Physician Obstetrics and Gynecology 12/07/22 Tejas Dejesus MD [address] [place] [address] Referring Physician Dermatology 12/07/22 documented as of this encounter
== END 2024-02-01 12:36 | disposition home or self-care (01) ==
PROVIDERS: Emergency Provider Physician Assistant; PCP Obstetrics & Gynecology
DX: O26.892 Other specified pregnancy related conditions, second trimester (principal); R10.31 Right lower quadrant pain; O31.22X0 Continuing pregnancy after intrauterine death of one fetus or more, second trimester, not applicable or unspecified; Z3A.18 18 weeks gestation of pregnancy
CPT/HCPCS: 36415; 76815; 80053; 81003; 83690; 85025; 96361; 96374; 99284; A9270; J7030; J7040

== ENCOUNTER 2024-05-15 11:56 | Observation (INO) | payer OTHER, SELFPAY ==
[2024-05-15] VITALS (20 sets, daily range): BP systolic 105–119; BP diastolic 70; PULSE 69–129; O2SAT 98–100; BMI 26.9
--- NOTE | ~2024-05-15 | US_ITS ---
EXAMINATION: US OB BPP wo non-stress DATE: 05/15/2024 13:42 INDICATION: Vaginal bleeding during third trimester . Assess amniotic fluid index and cervic al length TECHNIQUE: Real-time pelvic ultrasound was performed. The interpreting radiologist was not present fo r the study. COMPARISON: None. FINDINGS: There is a single living fetus in vertex presentation. The placenta is anterior and not low-lying. F etal heart rate is 131 beats per minute (bpm). Cervical length of 3.8 cm which is normal. There is gage ggestion of some V-shaped funneling at the internal cervical os. Normal amniotic fluid index of 10.9 cm (5th%-95%: 8.3-24.5 cm at 32 weeks estimated gestational age) Biophysical profile performed by the technologist: breathing (30 sec sustained breathing in 30 minutes): 2 out of 2 movement (3 gross body movements in 30 minutes): 2 out of 2 tone (one episode of kzmifmf-ackpwzyab-okiamjj limb movement): 2 out of 2 Amniotic fluid pocket (2 cm): 2 out of 2 Total score: 8 out of 8 IMPRESSION: 1. Single living fetus in vertex presentation with heart rate of 131 bpm. 2. Biophysical profile 8 out of 8. 3. Normal amniotic fluid index of 10.9 cm. 4. Normal cervical length of 3.8 cm with suggestion of V-shaped funneling at the internal cervical os . Reviewed, dictated and finalized at location A. IMPRESSION: 1. Single living fetus in vertex presentation with heart rate of 131 bpm. 2. Biophysical profile 8 out of 8. 3. Normal amniotic fluid index of 10.9 cm. 4. Normal cervical length of 3.8 cm with suggestion of V-shaped funneling at th e internal cervical os.
[2024-05-15 13:15] LABS: Basophils Percent Auto 0.2 % (0.2-1.2); Eosinophils Percent Auto 0.4 % (0-4.4); Hematocrit 35.8 % (37.0-47.0); Hemoglobin 11.8 g/dL (12.0-15.0); Immature Granulocyte Absolute 0.06 K/mm3 (0.00-0.031); Immature Granulocyte Percent A 0.6 % (0-0.5); Lymphocytes Absolute Auto 1.83 K/mm3 (0.9-3.2); Lymphocytes Percent Auto 18.1 % (18.3-44.2); Mean Corpuscular Hemoglobin 28.6 pg (26-34); Mean Corpuscular Volume 86.7 fl (80-100); Mean Platelet Volume 10.8 fl (7.4-10.4); Monocytes Absolute Auto 0.5 K/mm3 (0.1-0.6); Monocytes Percent Auto 4.5 % (2.6-8.5); Neutrophils Absolute Auto 7.7 K/mm3 (1.3-6.7); Neutrophils Percent Auto 76.2 % (45.5-73.1); Platelet Count Result 200 k/mm3 (150-375); Red Blood Count 4.13 M/mm3 (4.2-5.4); Red Cell Distribution Width 13.5 % (11.5-14.5); White Blood Count 10.1 K/mm3 (4.5-10.0)
[2024-05-15] MEDS: LACTATED RINGERS 1,000 ML 999 ML IV CONT (13:18)
[2024-05-15 13:27] LABS: INR 0.9; Prothrombin Time 12.6 Seconds (11.1-14.7)
[2024-05-15 13:28] LABS: Fibrinogen 464 mg/dl (215-510); Partial Thromboplastin Time 25.6 Seconds (22.3-36.8)
[2024-05-15 13:31] LABS: Alanine Aminotransferase 16 U/L (6-35); Albumin Level 3.9 g/dL (3.5-5.1); Alkaline Phosphatase 110 U/L (38-126); Anion Gap 8 mmol/L (4-12); Aspartate Amino Transferase 20 U/L (14-36); Bilirubin,Total 0.4 mg/dL (0.2-1.3); Blood Urea Nitrogen 11 mg/dL (7-17); Calcium 9.7 mg/dL (8.4-10.2); Carbon Dioxide 23 mmol/L (22-30); Chloride 104 mmol/L (98-107); Estimated Glomerular Filt Rate > 60; Glucose 70 mg/dL (65-110); Potassium 4.2 mmol/L (3.4-5.0); Sodium 135 mmol/L (137-145)
--- OUTSIDE RECORDS SUMMARY | 2024-05-15 13:55 | XMS_ITS | Referral Summary ---
Author Organization [facility] Address [address] [place] [address] Phone Care Team Providers Care Handcrew Foreman Name Role Phone Valentin Rosenberg MD Unavailable [phone] Tejas Dejesus MD Unavailable [phone] Bhavya Oquendo NP Primary Care Provider [phone] Allergies No known active allergies Medications glycopyrrolate (ROBINUL) 2 mg tablet Take 1 tablet (2 mg total) by mouth daily Active vit 00-cspu-kbqzg-dh a 27mg iron- 800 mcg-250 mg capsule Take by mouth Active Active Problems Problem Noted Date Diagnosed Date Annual physical exam 12/28/2023 Assessment & Plan (01/02/2024 8:42 AM HEAT TREAT OPERATOR): -Recommended: Healthy diet. 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 Immunizations Immunization Administration Dates Next Due Influenza, Quadrivalent, Spl [...] on file Legal Sex Female 9:22 PM HEAT TREAT OPERATOR Gender Identity Not on file Sexual Orientation Not on file Last Filed Vital Signs Vital Sign Reading Time Taken Comments Blood Pressure 100/60 12/28/2023 1:36 PM HEAT TREAT OPERATOR Pulse 90 12/28/2023 1:36 PM HEAT TREAT OPERATOR Temperature 36.7 C (98.1 F) 12/28/2023 1:36 PM HEAT TREAT OPERATOR Respiratory Rate 18 12/28/2023 1:36 PM HEAT TREAT OPERATOR Oxygen Saturation 98% 12/28/2023 1:36 PM HEAT TREAT OPERATOR Inhaled Oxygen Concentration - - Weight 64.1 kg (141 lb 6.4 oz) 12/28/2023 1:36 P M HEAT TREAT OPERATOR Height 160 cm (5' 3 ) 12/28/2023 1:36 PM HEAT TREAT OPERATOR Body Mass Index 25.05 12/28/2023 1:36 PM HEAT TREAT OPERATOR Plan of Treatment Not on file Insurance [facility] [place] [address] Care Teams Handcrew Foreman Relationship Specialty Start Date End Date Bhavya Oquendo NP [address] [address] PCP - General Family Medicine 12/28/23 Valentin Rosenberg MD [address] [place] [address] Referring Physician Obstetrics and Gynecology 12/07/22 Tejas Dejesus MD [address] [place] [address] Referring Physician Dermatology 12/07/22
--- OUTSIDE RECORDS SUMMARY | 2024-05-15 13:55 | XMS_ITS | Clinical Summary ---
Author Organization [facility] Address [address] [place] [address] Phone Care Team Providers Care Community Recreation Programmer Name Role Phone Valentin Rosenberg MD Unavailable [phone] Tejas Dejesus MD Unavailable [phone] Bhavya Oquendo NP Primary Care Provider [phone] Allergies No known active allergies Medications glycopyrrolate (ROBINUL) 2 mg tablet Take 1 tablet (2 mg total) by mouth daily Active vit 79-sowd-vmqno-dh a 27mg iron- 800 mcg-250 mg capsule Take by mouth Active Active Problems Problem Noted Date Diagnosed Date Annual physical exam 12/28/2023 Assessment & Plan (01/02/2024 8:42 AM INSURANCE SALES SUPERVISOR): -Recommended: Healthy diet. Avoiding junk food/fast food. [...] on file Legal Sex Female 9:22 PM INSURANCE SALES SUPERVISOR Gender Identity Not on file Sexual Orientation Not on file Obstetrics History Para Term AB IAB SAB Ectopic Multiple Livin g Live Births 1 Date Outcome GA Total Labor Labor/2nd/3rd Weight Sex Type Anes PTL Francy A1 A5 Name Clin Current Last Filed Vital Signs Vital Sign Reading Time Taken Comments Blood Pressure 100/60 12/28/2023 1:36 PM INSURANCE SALES SUPERVISOR Pulse 90 12/28/2023 1:36 PM INSURANCE SALES SUPERVISOR Temperature 36.7 C (98.1 F) 12/28/2023 1:36 PM INSURANCE SALES SUPERVISOR Respiratory Rate 18 12/28/2023 1:36 PM INSURANCE SALES SUPERVISOR Oxygen Saturation 98% 12/28/2023 1:36 PM INSURANCE SALES SUPERVISOR Inhaled Oxygen Concentration - - Weight 64.1 kg (141 lb 6.4 oz) 12/28/2023 1:36 P M INSURANCE SALES SUPERVISOR Height 160 cm (5' 3 ) 12/28/2023 1:36 PM INSURANCE SALES SUPERVISOR Body Mass Index 25.05 12/28/2023 1:36 PM INSURANCE SALES SUPERVISOR Plan of Treatment Health Maintenance Due Date Last Done Comments Cervical Cancer Screening 1992 Hepatitis C Screening 1992 Hepatitis B Screening 01/06/2010 DTaP/Tdap/Td Vaccine (1 - Tdap) 07/14/2021 07/13/2021 Covid-19 Vaccine (2023- season) 2023 05/11/2020, 04/19/2020 Depression Screening 12/27/2024 12/28/2023, 12/07/2022 Regular Well Visit/Exam 18-64 12/27/2024 12/28/2023, 12/07/2022 Influenza Vaccine Completed 12/28/2023, 12/07/2022, 02/16/2012 HPV Vaccines Aged Out No longer eligi ble based on patient's age to complete this topic Pneumococcal vaccine <65 Aged Out No longer eligible based on patient's age to complete this topic Varicella Vaccines Discontinued Insurance [employer] [facility] HMO/PPO Address: [facility] [address] [place] [address] Care Teams Community Recreation Programmer Relationship Specialty Start Date End Date Bahvya Oquendo NP [address] [place] [address] PCP - General Family Medicine 12/28/23 Valentin Rosenberg MD [address] [place], [place] [id number] Referring Physician Obstetrics and Gynecology 12/07/22 Tejas Dejesus MD [address] [place] [address] Referring Physician Dermatology 12/07/22
[2024-05-15] MEDS: LACTATED RINGERS 1,000 ML 200 ML IV CONT (14:41)
[2024-05-15] MEDS: TERBUTALINE SULFATE 1 MG/ML VIAL 0.25 MG SUB-Q (14:41)
[2024-05-15 16:31] LABS: Add Urine Microscopic? NO; Appearance Urine Clear (Clear); Bilirubin Urine Negative (Negative); Blood Urine Negative (Negative); Color Urine Yellow (Yellow); Glucose Urine UA Negative (Negative); Ketones Urine 1+ mg/dL (Negative); Leukocyte Esterase Ur Negative LEU/UL (Negative); Nitrate Urine Negative (Negative); Protein Urine Negative (Negative); Specific Grav Ur 1.007 (1.001-1.035); Urobilinogen Urine 0.2 mg/dL (<2.0)
--- NOTE | 2024-05-16 07:41 | PM.OBTRLD ---
OB - Triage/Final Diagnosis Visit Information Comments/Additional reasons for admission: I have assessed the risk for this patient, Alexsandra Loyd, and determined that she would benefit from observation care. Evaluation Laboratory results: Laboratory Tests 05/15/24 05/15/24 12:49 16:25 WBC 10.1 H RBC 4.13 L Hgb 11.8 L Hct 35.8 L MCV 86.7 MCH 28.6 MCHC 33.0 RDW 13.5 Plt Count 200 MPV 10.8 H Immature Gran % (Auto) 0.6 H Neut % (Auto) 76.2 H Lymph % (Auto) 18.1 L [place] % (Auto) 4.5 Eos % (Auto) 0.4 Baso % (Auto) 0.2 Lymph # (Auto) 1.83 [place] # (Auto) 0.5 Eos # (Auto) 0.0 Baso # (Auto) 0.0 Abs Immat Gran (auto) 0.06 H Absolute Neuts (auto) 7.7 H Absolute Nucleated RBC 0.000 Nucleated RBC % 0.0 PT 12.6 INR 0.9 APTT 25.6 Fibrinogen 464 Sodium 135 L Potassium 4.2 Chloride 104 Carbon Dioxide 23 Anion Gap 8 BUN 11 Creatinine 0.61 L Estim Creat Clear Calc Not Reportable Estimated GFR > 60 Glucose 70 Calcium 9.7 Total Bilirubin 0.4 AST 20 ALT 16 Alkaline Phosphatase 110 Total Protein 7.0 Albumin 3.9 Urine Color Yellow Urine Appearance Clear Urine pH 6.0 Ur Specific [place] 1.007 Urine Protein Negative Urine Glucose (UA) Negative Urine Ketones 1+ H Ur Blood (Man) Negative Urine Nitrate Negative Urine Bilirubin Negative Urine Urobilinogen 0.2 Ur Leukocyte Esterase Negative Blood Type O Positive Antibody Screen Negative Vital signs: Vital Signs - 24 hr 05/15/24 12:00 05/15/24 12:30 05/15/24 12:45 Pulse Rate 69 72 Blood Pressure 119/70 105/70 Pulse Oximetry Oxygen Delivery Room Air 05/15/24 14:40 05/15/24 14:45 05/15/24 14:50 Pulse Rate Blood Pressure Pulse Oximetry 100 100 100 Oxygen Delivery 05/15/24 14:55 05/15/24 15:00 05/15/24 15:05 Pulse Rate Blood Pressure Pulse Oximetry 100 100 100 Oxygen Delivery 05/15/24 15:10 05/15/24 15:11 05/15/24 15:12 Pulse Rate Blood Pressure Pulse Oximetry 100 100 98 Oxygen Delivery 05/15/24 15:17 05/15/24 15:22 05/15/24 15:27 Pulse Rate Blood Pressure Pulse Oximetry 100 100 99 Oxygen Delivery 05/15/24 15:32 05/15/24 15:37 05/15/24 15:42 Pulse Rate Blood Pressure Pulse Oximetry 100 100 100 Oxygen Delivery 05/15/24 15:47 05/15/24 15:52 05/15/24 15:57 Pulse Rate Blood Pressure Pulse Oximetry 100 100 100 Oxygen Delivery Final Diagnosis (1) Vaginal bleeding during : Code(s): O46.90 - Antepartum hemorrhage, unspecified, unspecified trimester Status: Acute
== END 2024-05-15 15:53 | disposition home or self-care (01) ==
PROVIDERS: Admitting Provider Obstetrics & Gynecology; PCP Obstetrics & Gynecology; Visit Provider Obstetrics & Gynecology
DX: O46.93 Antepartum hemorrhage, unspecified, third trimester (principal); Z3A.32 32 weeks gestation of pregnancy
CPT/HCPCS: 36415; 76819; 80053; 81003; 85025; 85384; 85610; 85730; 86850; 86900; 86901; 96372; G0378; G0379; J3105; J7120

== ENCOUNTER 2024-05-23 15:35 | Observation (INO) | payer OTHER, SELFPAY ==
--- NOTE | 2024-05-23 15:35 | OBADM ---
This patient, Alexsandra Loyd, admitted to the OB room 115 for observation. Patient/family oriented to hospital policies and general routines including ID bracelet, bed and alarms, visiting hours, pain management, procedures, bathroom and other care routines, personal items, smoking policy, room service/diet, and visiting hours. Patient/Family are encouraged to report perceived risks to care and to ask questions if they do not understand what they are told or what they should do.
--- NOTE | 2024-05-23 16:01 | PC.NURSE ---
Called Dr. Dennis phone and Dr. Gibbs answered. Discussed pt. having contractions every 2 minutes at 34 weeks and came in with same complaint last week. Orders received for terbutaline, SVE, and PO hydration.
[2024-05-23 16:05] VITALS: BMI 28.5
--- NOTE | 2024-05-23 16:05 | OBADM ---
This patient, Alexsandra Loyd, admitted to the OB room for observation. Patient/family oriented to hospital policies and general routines including ID bracelet, bed and alarms, visiting hours, pain management, procedures, bathroom and other care routines, personal items, smoking policy, room service/diet, and visiting hours. Patient/Family are encouraged to report perceived risks to care and to ask questions if they do not understand what they are told or what they should do.
[2024-05-23] MEDS: TERBUTALINE SULFATE 1 MG/ML VIAL 0.25 MG SUB-Q (16:13)
--- NOTE | 2024-05-23 16:17 | PC.NURSE ---
Performed SVE, cervix is closed thick and high. White cottage cheese like discharge noted.
[2024-05-23 16:20] LABS: Add Urine Microscopic? NO; Appearance Urine Clear (Clear); Bilirubin Urine Negative (Negative); Blood Urine Negative (Negative); Color Urine Yellow (Yellow); Glucose Urine UA Negative (Negative); Ketones Urine Negative (Negative); Leukocyte Esterase Ur Negative LEU/UL (Negative); Nitrate Urine Negative (Negative); Protein Urine Negative (Negative); Specific Grav Ur 1.012 (1.001-1.035); Urobilinogen Urine 0.2 mg/dL (<2.0); pH Urine 6.5 (5.0-9.0)
--- OUTSIDE RECORDS SUMMARY | 2024-05-23 16:33 | XMS_ITS | Clinical Summary ---
Author Organization [facility] Address [address] [place] [address] Phone Care Team Providers Care Supervisor Livestock Yard Name Role Phone Valentin Rosenberg MD Unavailable [phone] Tejas Dejesus MD Unavailable [phone] Bhavya Oquendo NP Primary Care Provider [phone] Allergies No known active allergies Medications glycopyrrolate (ROBINUL) 2 mg tablet Take 1 tablet (2 mg total) by mouth daily Active vit 40-gfml-fbsbj-dh a 27mg iron- 800 mcg-250 mg capsule Take by mouth Active Active Problems Problem Noted Date Diagnosed Date Annual physical exam 12/28/2023 Assessment & Plan (01/02/2024 8:42 AM BOTTOM PRECIPITATOR OPERATOR): -Recommended: Healthy diet. Avoiding junk food/fast [...] on file Legal Sex Female 9:22 PM BOTTOM PRECIPITATOR OPERATOR Gender Identity Not on file Sexual Orientation Not on file Obstetrics History Para Term AB IAB SAB Ectopic Multiple Livin g Live Births 1 Date Outcome GA Total Labor Labor/2nd/3rd Weight Sex Type Anes PTL Francy A1 A5 Name Clin Current Last Filed Vital Signs Vital Sign Reading Time Taken Comments Blood Pressure 100/60 12/28/2023 1:36 PM BOTTOM PRECIPITATOR OPERATOR Pulse 90 12/28/2023 1:36 PM BOTTOM PRECIPITATOR OPERATOR Temperature 36.7 C (98.1 F) 12/28/2023 1:36 PM BOTTOM PRECIPITATOR OPERATOR Respiratory Rate 18 12/28/2023 1:36 PM BOTTOM PRECIPITATOR OPERATOR Oxygen Saturation 98% 12/28/2023 1:36 PM BOTTOM PRECIPITATOR OPERATOR Inhaled Oxygen Concentration - - Weight 64.1 kg (141 lb 6.4 oz) 12/28/2023 1:36 P M BOTTOM PRECIPITATOR OPERATOR Height 160 cm (5' 3 ) 12/28/2023 1:36 PM BOTTOM PRECIPITATOR OPERATOR Body Mass Index 25.05 12/28/2023 1:36 PM BOTTOM PRECIPITATOR OPERATOR Plan of Treatment Health Maintenance Due Date [...] complete this topic Varicella Vaccines Discontinued Insurance [facility] [place] HMO/PPO Address: [facility] [address] [place] [address] Care Teams Supervisor Livestock Yard Relationship Specialty Start Date End Date Bhavya Oquendo NP [address] [place] [address] PCP - General Family Medicine 12/28/23 Valentin Rosenberg MD [address] [place], [place] [address] Referring Physician Obstetrics and Gynecology 12/07/22 Tejas Dejesus MD [address] [place] [address] Referring Physician Dermatology 12/07/22
--- OUTSIDE RECORDS SUMMARY | 2024-05-23 16:33 | XMS_ITS | Referral Summary ---
Author Organization [facility] Address [address] [place] [address] Phone Care Team Providers Care Timers Inspector Name Role Phone Valentin Rosenberg MD Unavailable [phone] Tejas Dejesus MD Unavailable [phone] Bhavya Oquendo NP Primary Care Provider [phone] Allergies No known active allergies Medications glycopyrrolate (ROBINUL) 2 mg tablet Take 1 tablet (2 mg total) by mouth daily Active vit 53-ldxv-xecek-dh a 27mg iron- 800 mcg-250 mg capsule Take by mouth Active Active Problems Problem Noted Date Diagnosed Date Annual physical exam 12/28/2023 Assessment & Plan (01/02/2024 8:42 AM CAD LIBRARIAN): -Recommended: Healthy diet. Avoiding junk food/fast food. [...] on file Legal Sex Female 9:22 PM CAD LIBRARIAN Gender Identity Not on file Sexual Orientation Not on file Last Filed Vital Signs Vital Sign Reading Time Taken Comments Blood Pressure 100/60 12/28/2023 1:36 PM CAD LIBRARIAN Pulse 90 12/28/2023 1:36 PM CAD LIBRARIAN Temperature 36.7 C (98.1 F) 12/28/2023 1:36 PM CAD LIBRARIAN Respiratory Rate 18 12/28/2023 1:36 PM CAD LIBRARIAN Oxygen Saturation 98% 12/28/2023 1:36 PM CAD LIBRARIAN Inhaled Oxygen Concentration - - Weight 64.1 kg (141 lb 6.4 oz) 12/28/2023 1:36 P M CAD LIBRARIAN Height 160 cm (5' 3 ) 12/28/2023 1:36 PM CAD LIBRARIAN Body Mass Index 25.05 12/28/2023 1:36 PM CAD LIBRARIAN Plan of Treatment Not on file Insurance [facility] H[facility]/PPO Address: [address] [address] [place] [address] Care Teams Timers Inspector Relationship Specialty Start Date End Date Bhavya Oquendo NP [address] [facility] [place] [address] PCP - General Family Medicine 12/28/23 Valentin Rosenberg MD [address] [place] [address] Referring Physician Obstetrics and Gynecology 12/07/22 Tejas Dejesus MD [address] [facility] [address] [place] [address] Referring Physician Dermatology 12/07/22
--- NOTE | 2024-05-23 16:59 | PC.NURSE ---
Called Dr. Dennis and notified of SVE: closed thick and high, contractions have stopped with one dose of terbutaline and cottage cheese like discharge with redness to pubic area noted. Order received for fluconazole 150 mg x1. Pt. should continue pelvic rest, limiting exercise and drinking adequate amounts of fluids.
[2024-05-23] MEDS: FLUCONAZOLE 150 MG TABLET PO (17:33)
--- NOTE | 2024-05-24 08:28 | PM.OBTRLD ---
OB - Triage/Final Diagnosis Visit Information Comments/Additional reasons for admission: I have assessed the risk for this patient, Alexsandra Loyd, and determined that she would benefit from observation care. Evaluation Laboratory results: Laboratory Tests 05/23/24 15:54 Urine Color Yellow Urine Appearance Clear Urine pH 6.5 Ur Specific [place] 1.012 Urine Protein Negative Urine Glucose (UA) Negative Urine Ketones Negative Ur Blood (Man) Negative Urine Nitrate Negative Urine Bilirubin Negative Urine Urobilinogen 0.2 Leukocyte Esterase Rfl Negative Vital signs: Vital Signs - 24 hr 05/23/24 16:05 Oxygen Delivery Room Air Final Diagnosis (1) contractions: Code(s): O47.00 - False labor before 37 completed weeks of gestation, unspecified trimester Status: Acute
== END 2024-05-23 17:40 | disposition home or self-care (01) ==
PROVIDERS: Admitting Provider Obstetrics & Gynecology; PCP Obstetrics & Gynecology; Visit Provider Obstetrics & Gynecology
DX: O47.00 False labor before 37 completed weeks of gestation, unspecified trimester (principal); Z3A.00 Weeks of gestation of pregnancy not specified
CPT/HCPCS: 81003; 96372; A9270; G0378; G0379

== ENCOUNTER 2024-06-24 05:06 | Inpatient (IN) | payer OTHER, SELFPAY ==
[2024-06-24] VITALS (148 sets, daily range): BP systolic 78–134; BP diastolic 45–115; PULSE 25–158; RESP 18; TEMP 36.8–36.9; O2SAT 82–100; BMI 28.9
--- NOTE | ~2024-06-24 | US_ITS ---
Duplex Sonography of the bilateral lower extremities: Indication: calf tenderness Sagittal and transverse B-mode images as well as color-flow imaging were performed on the right and l eft femoral and popliteal veins. B-mode examination was done without and with compression in the tra nsverse plane. There is good visualization of the bilateral common femoral, proximal profunda femora l, femoral, greater saphenous, and popliteal veins. Normal flow was seen on color-flow imaging. Norm al compressibility was demonstrated. Visualized calf veins are also patent. Impression: No evidence of deep vein thrombosis involving either lower extremity. Reviewed, dictated and finalized at location M. Impression: No evidence of deep vein thrombosis involving either lower extremit y.
--- OUTSIDE RECORDS SUMMARY | 2024-06-24 05:45 | XMS_ITS | Referral Summary ---
Author Organization [facility] Address [address] [place] [address] Phone Care Team Providers Care Aquaculture Director Name Role Phone Valentin Rosenberg MD Unavailable [phone] Tejas Dejesus MD Unavailable [phone] Bhavya Oquendo NP Primary Care Provider Allergies No known active allergies Medications glycopyrrolate (ROBINUL) 2 mg tablet Take 1 tablet (2 mg total) by mouth daily Active vit 04-gecw-eowab-dh a 27mg iron- 800 mcg-250 mg capsule Take by mouth Active Active Problems Problem Noted Date Diagnosed Date Annual physical exam 12/28/2023 Assessment & Plan (01/02/2024 8:42 AM CELLULAR EQUIPMENT INSTALLER): -Recommended: Healthy diet. Avoiding junk food/fast food. [...] on file Legal Sex Female 9:22 PM CELLULAR EQUIPMENT INSTALLER Gender Identity Not on file Sexual Orientation Not on file Last Filed Vital Signs Vital Sign Reading Time Taken Comments Blood Pressure 100/60 12/28/2023 1:36 PM CELLULAR EQUIPMENT INSTALLER Pulse 90 12/28/2023 1:36 PM CELLULAR EQUIPMENT INSTALLER Temperature 36.7 C (98.1 F) 12/28/2023 1:36 PM CELLULAR EQUIPMENT INSTALLER Respiratory Rate 18 12/28/2023 1:36 PM CELLULAR EQUIPMENT INSTALLER Oxygen Saturation 98% 12/28/2023 1:36 PM CELLULAR EQUIPMENT INSTALLER Inhaled Oxygen Concentration - - Weight 64.1 kg (141 lb 6.4 oz) 12/28/2023 1:36 P M CELLULAR EQUIPMENT INSTALLER Height 160 cm (5' 3 ) 12/28/2023 1:36 PM CELLULAR EQUIPMENT INSTALLER Body Mass Index 25.05 12/28/2023 1:36 PM CELLULAR EQUIPMENT INSTALLER Plan of Treatment Not on file Insurance [facility] [place] [address] Care Teams Aquaculture Director Relationship Specialty Start Date End Date Bhavya Oquendo NP [address] [place] [address] PCP - General Family Medicine 12/28/23 Valentin Rosenberg MD [address] [place] [address] Referring Physician Obstetrics and Gynecology 12/07/22 Tejas Dejesus MD [address] [place] [address] Referring Physician Dermatology 12/07/22
--- OUTSIDE RECORDS SUMMARY | 2024-06-24 05:46 | XMS_ITS | Clinical Summary ---
Author Organization [facility] Address [address] [place] [address] Phone Care Team Providers Care Chief Legal Officer Name Role Phone Valentin Rosenberg MD Unavailable [phone] Tejas Dejesus MD Unavailable [phone] Bhavya Oquendo NP Primary Care Provider [phone] Allergies No known active allergies Medications glycopyrrolate (ROBINUL) 2 mg tablet Take 1 tablet (2 mg total) by mouth daily Active vit 70-fizt-mfvou-dh a 27mg iron- 800 mcg-250 mg capsule Take by mouth Active Active Problems Problem Noted Date Diagnosed Date Annual physical exam 12/28/2023 Assessment & Plan (01/02/2024 8:[address]IL[address]): -Recommended: Healthy diet. Avoiding junk food/fast food. [...] on file Legal Sex Female 9:[address] Gender Identity Not on file Sexual Orientation Not on file Obstetrics History Para Term AB IAB SAB Ectopic Multiple Livin g Live Births 1 Date Outcome GA Total Labor Labor/2nd/3rd Weight Sex Type Anes PTL Francy A1 A5 Name Clin Current Last Filed Vital Signs Vital Sign Reading Time Taken Comments Blood Pressure 100/60 12/28/2023 1:[address]IL[address] Pulse 90 12/28/2023 1:[address] Temperature 36.7 C (98.1 F) 12/28/2023 1:[address] Respiratory Rate 18 12/28/2023 1:[address] Oxygen Saturation 98% 12/28/2023 1:[address] Inhaled Oxygen Concentration - - Weight 64.1 kg (141 lb 6.4 oz) 12/28/2023 1:[address] OILER Height 160 cm (5' 3 ) 12/28/2023 1:[address] Body Mass Index 25.05 12/28/2023 1:[address] Plan of Treatment Health Maintenance Due Date [...] complete this topic Varicella Vaccines Discontinued Insurance [place] [address] Care Teams Chief Legal Officer Relationship Specialty Start Date End Date Bhavya Oquendo NP [address] [facility] [place] [address] PCP - General Family Medicine 12/28/23 Valentin Rosenberg MD [address] [place], [place] [id number] Referring Physician Obstetrics and Gynecology 12/07/22 Tejas Dejesus MD [address] [facility] [place] [address] Referring Physician Dermatology 12/07/22
--- OUTSIDE RECORDS SUMMARY | 2024-06-24 05:46 | XMS_ITS | Continuity of Care Document ---
Author Organization [facility] Address [address] [place] [address] Phone Care Team Providers Care Director Of Category Management Name Role Phone Alfredo PT,MPT,ATC, Dominic Unavailable [...] Diagnoses Date Provider Providers Copied on Encounter [facility], [place], [place], [address], tel:[phone] [place] No Information 4 YVAN [place], [place]. [facility], [place], [place], [address], tel:[phone] [place] No Information 3 YVAN [place], [place]. Referring Provider: Martha Mccartney , [address], [place], [address]. tel:[phone] [facility], [place], [place], [address], [place] tel:[phone] [place] No Information 3 [place] Dominic. [place], [place], [place]. Referring Provider: Martha Mccartney , [address], [place], [address]. tel:[phone] [facility], [place], [place], [address], [place] tel:[phone] [place] No Information 3 Fu[address] Dominic. , [place], [place]. Referring Provider: Martha Mccartney , [address], [place], [address]. tel:[phone] [facility], [place], [place], [address], [place] tel:[phone] [place] No Information 3 [place] Dominic. , [place], [place]. Referring Provider: Martha Mccartney , [address], [place], [address]. tel:[phone] [facility], [place], [place], [address], [place] tel:[phone] [place] No Information 3 Fu[address] Dominic. , [place], [place]. Referring Provider: Martha Mccartney , [address], [place], [address]. tel:[phone] [facility], [place], [place], [address], [place] tel:[phone] [place] No Information 3 [place] Dominic. [place], [place]. Referring Provider: Martha Mccartney , [address], [place], [address]. tel:[phone] [facility], [place], [place], [address], tel:[phone] [place] No Information 3 Manuel Peace. . Referring Provider: Martha Mccartney , [address], [place], [address]. tel:[phone] Family History Family Member Type Diagnosis Age At Onset No Information Payers Payer name Insurance type Covered libertarian ID [id number] paco(s) R [id number] Social History Type Description Quantity Date Captured [...]
[2024-06-24 06:19] LABS: Basophils Absolute Auto 0.1 K/mm3 (0.0-0.1); Basophils Percent Auto 0.4 % (0.2-1.2); Eosinophils Absolute Auto 0.1 K/mm3 (0-0.3); Eosinophils Percent Auto 0.4 % (0-4.4); Hemoglobin 13.2 g/dL (12.0-15.0); Immature Granulocyte Absolute 0.06 K/mm3 (0.00-0.031); Immature Granulocyte Percent A 0.5 % (0-0.5); Lymphocytes Absolute Auto 2.08 K/mm3 (0.9-3.2); Lymphocytes Percent Auto 18.5 % (18.3-44.2); Mean Corpuscular HGB Conc 34.7 g/dl (32-36); Mean Corpuscular Hemoglobin 29.3 pg (26-34); Mean Corpuscular Volume 84.3 fl (80-100); Mean Platelet Volume 11.5 fl (7.4-10.4); Monocytes Absolute Auto 0.5 K/mm3 (0.1-0.6); Monocytes Percent Auto 4.5 % (2.6-8.5); Neutrophils Absolute Auto 8.5 K/mm3 (1.3-6.7); Neutrophils Percent Auto 75.7 % (45.5-73.1); Platelet Count Result 183 k/mm3 (150-375); Red Blood Count 4.51 M/mm3 (4.2-5.4); Red Cell Distribution Width 13.1 % (11.5-14.5); White Blood Count 11.2 K/mm3 (4.5-10.0)
--- NOTE | 2024-06-24 06:31 | LDADM ---
This patient, Alexsandra Loyd, was admitted to Labor/Delivery/Recovery 109 on 06/24/24 at 05:06. Plans for labor, pain management and were discussed with patient. Patient/family oriented to hospital policies and general routines including ID bracelet, bed and alarms, visiting hours, pain management, procedures, bathroom and other care routines, personal items, smoking policy, room service/diet and guest tray routines, infant security routines, and visiting hours. Patient/Family are encouraged to report perceived risks to care and to ask questions if they do not understand what they are told or what they should do. See OBIX for further documentation.
[2024-06-24 07:04] LABS: Syphilis IgG/IgM Antibody Negative (Negative)
[2024-06-24 07:17] LABS: HIV 1/2 Ab P24 Ag Result Negative (Negative)
--- NOTE | 2024-06-24 07:17 | WPDANESEPP ---
Anes - Eval Pre Procedure Procedure: labor epidural Date/Time: 06/24/24 07:17 Surgeon: fay Preop Diagnosis: pain during labor Pre Op Diagnosis: SROM Patient Data Age: 34 Gender: F Height: 1.6 m Weight: 74 kg Last Vital Signs Pulse 87 06/24/24 07:15 BP 116/68 06/24/24 07:15 O2 Del Method Room Air 06/24/24 06:31 Allergies Allergy/AdvReac Type Severity Reaction Status Date / Time No Known Allergies Allergy Mild Verified 06/24/24 05:52 Home Medications ?Medication ?Instructions ?Recorded ?Confirmed ?Type vitamins with calcium 1 tablet PO DAILY #90 tabs 12/23/22 06/24/24 Rx no.72-iron 29 mg-folic acid 1 mg tablet ferrous sulfate 325 mg (65 mg 325 mg PO DAILY 05/03/24 06/24/24 History iron) tablet mesalamine 1,000 mg rectal 1,000 mg RECTAL DAILY PRN proctitus 06/10/24 06/24/24 History suppository Laboratory Tests 06/24/24 06:12 WBC 11.2 H K/mm3 (4.5-10.0) RBC 4.51 M/mm3 (4.2-5.4) Hgb 13.2 g/dL (12.0-15.0) Hct 38.0 % (37.0-47.0) MCV 84.3 fl (80-100) MCH 29.3 pg (26-34) MCHC 34.7 g/dl (32-36) RDW 13.1 % (11.5-14.5) Plt Count 183 k/mm3 (150-375) MPV 11.5 H fl (7.4-10.4) Immature Gran % (Auto) 0.5 % (0-0.5) Neut % (Auto) 75.7 H % (45.5-73.1) Lymph % (Auto) 18.5 % (18.3-44.2) Dent % (Auto) 4.5 % (2.6-8.5) Eos % (Auto) 0.4 % (0-4.4) Baso % (Auto) 0.4 % (0.2-1.2) Lymph # (Auto) 2.08 K/mm3 (0.9-3.2) Dent # (Auto) 0.5 K/mm3 (0.1-0.6) Eos # (Auto) 0.1 K/mm3 (0-0.3) Baso # (Auto) 0.1 K/mm3 (0.0-0.1) Abs Immat Gran (auto) 0.06 H K/mm3 (0.00-0.031) Absolute Neuts (auto) 8.5 H K/mm3 (1.3-6.7) Absolute Nucleated RBC 0.000 K/mm3 (0.0-0.012) Nucleated RBC % 0.0 % (0.0-0.2) Syphilis IgG/IgM Ab Negative (Negative) HIV 1&2 Ab/P24 Ag 4thGn Pending Blood Type O Positive Antibody Screen Negative Patient hx anesthesia problems: none Family hx anesthesia problems: none Results Review: All pre-operative results and documents have been reviewed as part of the pre-operative evaluation. [facility] Past Medical History Medical History IUP (intrauterine ), incidental Rectal bleeding Family History Family History Father Hypertension Grandparent Carcinoma of colon Social History Social History Smoking status: Never smoker Alcohol intake: former Drinks per week: 3 Alcohol use details: before Substance use: never Do You Feel Safe in your Home?: Yes Lack of Transportation: No Lack of Food: Never True Current Housing: I Have Housing Concerned About Future Housing: No Difficulty Paying Gas/Electric Bills: No Difficulty Paying for Meds: No Currently Unemployed: No Education: Bachelor's Degree Difficulty w/ Childcare or Family Care: No Living arrangements: with family Occupation/Education: occupation Gender identity (if verbalized by the patient): Female Sexual Orientation (if Verbalized by the Patient): Straight or Heterosexual Spiritual care concerns: No Exam Day of Procedure 06/24/24 07:17
[2024-06-24] MEDS: AMPICILLIN 2 GM/NS 100 ML 2 GM/100 ML BAG IVPB (07:30)
[2024-06-24] MEDS: LACTATED RINGERS 1,000 ML 125 ML IV CONT ×2 (07:30→11:27)
[2024-06-24] MEDS: OXYTOCIN 30 UNITS/NS 500 ML 30 UNITS/500 ML BAG IV CONT (08:30)
--- NOTE | 2024-06-24 10:17 | PM.IMHP ---
H&P: HPI History of Present Illness Date/Time: 06/24/24 10:17 Chief Complaint: SROM 2315 Narrative: 34 y/o G1 at 38 weeks with edc 07/04/24 presents with c/o LOF clear at approximately 2315, confirmed on L and D, irregular contractions, cervix closed. PNC significant for early vanishing twin. Labs reviewed. GBS negative. Review of Systems Review of Systems: All systems reviewed & are unremarkable except as noted in HPI and below Constitutional: Constitutional: Reports no additional constitutional complaints and Denies headache(s) Eyes: Eyes: Denies spots in vision ENT: Reports system reviewed and no additional complaints, except as documented and Denies headache(s) Cardiovascular: Cardiovascular: Denies chest pain and Denies dyspnea Respiratory: Respiratory: Denies dyspnea Gastrointestinal: Gastrointestinal: Reports no additional gastrointestinal complaints Genitourinary: Genitourinary: Reports amenorrhea Musculoskeletal: Musculoskeletal: Reports no additional musculoskeletal complaints Integumentary/Breasts: Skin/Breast: Denies breast mass and Denies rash Neurologic: Denies headache(s) Psychiatric: Psychiatric: Reports no additional psychiatric complaints PMFSH Past Medical History Medical History IUP (intrauterine ), incidental Rectal bleeding Family History Family History Father Hypertension Grandparent Carcinoma of colon Social History Social History Smoking status: Never smoker Alcohol intake: former Drinks per week: 3 Alcohol use details: before Substance use: never Do You Feel Safe in your Home?: Yes Lack of Transportation: No Lack of Food: Never True Current Housing: I Have Housing Concerned About Future Housing: No Difficulty Paying Gas/Electric Bills: No Difficulty Paying for Meds: No Currently Unemployed: No Education: Bachelor's Degree Difficulty w/ Childcare or Family Care: No Living arrangements: with family Occupation/Education: occupation Gender identity (if verbalized by the patient): Female Sexual Orientation (if Verbalized by the Patient): Straight or Heterosexual Spiritual care concerns: No Meds Home Medications and Allergies Home Medications ?Medication ?Instructions ?Recorded ?Confirmed ?Type vitamins with calcium 1 tablet PO DAILY #90 tabs 12/23/22 06/24/24 Rx no.72-iron 29 mg-folic acid 1 mg tablet ferrous sulfate 325 mg (65 mg 325 mg PO DAILY 05/03/24 06/24/24 History iron) tablet mesalamine 1,000 mg rectal 1,000 mg RECTAL DAILY PRN proctitus 06/10/24 06/24/24 History suppository Allergies Allergy/AdvReac Type Severity Reaction Status Date / Time No Known Allergies Allergy Mild Verified 06/24/24 05:52 Vital Signs Vital Signs - 24 hr 06/24/24 05:45 06/24/24 06:00 06/24/24 06:15 Temperature Pulse Rate 65 73 81 Respiratory Rate Blood Pressure 107/68 99/68 L 88/65 L Oxygen Delivery 06/24/24 06:30 06/24/24 06:31 06/24/24 07:00 Temperature 98.2 F Pulse Rate 86 86 Respiratory Rate 18 Blood Pressure 105/62 115/70 Oxygen Delivery Room Air 06/24/24 07:15 06/24/24 07:30 06/24/24 07:45 Temperature Pulse Rate 87 84 91 Respiratory Rate Blood Pressure 116/68 105/74 102/81 Oxygen Delivery 06/24/24 08:15 06/24/24 08:30 06/24/24 08:45 Temperature Pulse Rate 93 70 75 Respiratory Rate Blood Pressure 114/88 115/73 114/85 Oxygen Delivery 06/24/24 09:00 06/24/24 09:15 06/24/24 09:30 Temperature Pulse Rate 83 78 75 Respiratory Rate Blood Pressure 108/75 127/81 108/74 Oxygen Delivery 06/24/24 09:46 06/24/24 10:00 06/24/24 10:15 Temperature Pulse Rate 70 80 71 Respiratory Rate Blood Pressure 121/82 114/70 134/115 H Oxygen Delivery Exam Const: General: no acute distress Eyes: General: appearance normal, both eyes and all related structures Resp: Effort & Inspection: normal respiratory effort Cardio: Rate: regular rate GI: Other: Gravid no fundal tenderness no right upper quadrant pain Skin: General skin exam: no rashes or lesions noted Neuro: Cognition (Neuro): normal cognition Extrem: General: normal to inspection Psych: Mental Status: mental status grossly normal H&P: Results Labs Labs: Short CBC 06/24/24 Range/Units 06:12 WBC 11.2 H (4.5-10.0) K/mm3 Hgb 13.2 (12.0-15.0) g/dL Hct 38.0 (37.0-47.0) % Plt Count 183 (150-375) k/mm3 Assessment and Plan Assessment and plan (1) Spontaneous rupture of membranes: Status: Acute Assessment and Plan: 1. Early labor. Plan for pitocin after six hours rupture, if not progressing in labor.
--- NOTE | 2024-06-24 10:17 | PM.OBPNLAB ---
Pain Control Date/time seen: 06/24/24 10:17 Comments: fht 135, cqt 1, ctx q 3, 260-70/-2, forebag ruptured clear fluid. Continue Pitocin augmentation.
[2024-06-24] MEDS: AMPICILLIN 1 GM/NS 50 ML 1 GM/50 ML BAG IVPB (15:00)
[2024-06-24] MEDS: ONDANSETRON INJ 4 MG/2 ML VIAL IV PUSH (15:51)
[2024-06-24] MEDS: OXYTOCIN 30 UNITS/NS 500 ML 30 UNITS/500 ML BAG 999 UNITS IV CONT (16:30)
[2024-06-24] MEDS: miSOPROStol 200 MCG TABLET 800 MCG RECTAL (16:48)
--- NOTE | 2024-06-24 16:51 | PM.OBPRVD ---
OB - Vaginal Delivery Note Procedure Delivery date: 06/24/24 Events: Other (vanishing twin, premature rupture of membranes) Delivery augmentation: Pitocin Delivery monitor: External FHT Route of delivery: Episiotomy description: None Laceration Description: Vaginal Delivery repair: vicryl Specimen: Yes (placenta and cord, placenta with accessory lobe or port of vanish twin) Quantitative Blood Loss (ml): 300 Anesthesia type: Epidural Disposition: Floor Complications: No immediate complications Baby Date of : 06/24/24 Time of : 16:24 Gestational Age by Date: 38 Infant gender: Male presentation: vertex position: Right Occiput Anterior Placenta delivery description: Spontaneous Cord Vessel Description: 3 Vessels score one minute: 8 score five minutes: 9 Narrative: She presented to L and D w c/o ?leaking. She noticed it on evening of 06/22. She was confirmed ruptured. Pitocin and Ampicillin was started. She had a forebag that was AROM, large amount of fluid. She progressed to active labor and subsequently to complete. She was afebrile. She delivered a female . Nose and mouth suctioned at perineum. Infant's shoulders and the rest of delivered with gentle traction. placed on maternal abdomen vigorously crying. Delayed cord clamping for one minute. Cord doubly clamped and cut. Cord blood and cord gases obtained. Pitocin started. Placenta delivered spontaneously and intact with accessory lobe noted. She sustained a small laceration at vaginal introitus. Approximated with 3.0 vicryl. Hemostasis noted.
[2024-06-24] MEDS: OXYTOCIN 30 UNITS/NS 500 ML 30 UNITS/500 ML BAG 125 UNITS IV CONT (16:59)
[2024-06-24] MEDS: IBUPROFEN 600 MG TABLET PO (18:22)
--- NOTE | 2024-06-24 19:15 | OBPPTRN ---
Patient transferred to post room #113 via w/c. Support person present. Oriented to unit, room, information board, rooming in, admission packet and security measures. Patient verbalizes understanding.
[2024-06-25] VITALS (8 sets, daily range): BP systolic 112–123; BP diastolic 72–82; PULSE 61–69; RESP 15–17; TEMP 36.6–37; O2SAT 97–100
[2024-06-25] MEDS: IBUPROFEN 600 MG TABLET PO ×3 (00:20→19:19)
[2024-06-25 06:49] LABS: Hematocrit 36.7 % (37.0-47.0); Hemoglobin 12.4 g/dL (12.0-15.0)
--- NOTE | 2024-06-25 08:24 | P.PNOB_ITS ---
OB - PN: Subj Subjective Date/time seen: 06/25/24 08:24 Interval history: She c/o calf tenderness mild right >left, mild tenderness with walking Patient comments: pain well controlled, tolerating diet and other (Decreasing lochia.) baby status: doing well and nursing well [place] feeding status: exclusively breast feeding OB - PN: Obj Data Labs 06/25/24 04:46 Labs: Laboratory Results - last 24 hr 06/25/24 04:46 Hgb 12.4 Hct 36.7 L OB - PN A/P Assessment and Plan (1) Vaginal delivery: Code(s): O80 - Encounter for full-term uncomplicated delivery Status: Acute Assessment and Plan: PPD1. Calf tenderness. Will order bilateral dopplers. Plan day: 1 Plan: routine care Comments: Patient doing well. Time Spent With Patient Time: Total time spent is greater than 50% in coordination of care (as documented) at patient's floor/unit and/or counseling patient: Exam 2 Psych: Affect: normal affect Other: Abd: fundus firm below umbilicus, nontender Perineum: healing Ext: tender bilat, r>l, no swelling or erythema
[2024-06-25] MEDS: DOCUSATE SODIUM 100 MG CAPSULE PO ×2 (08:47→16:14)
[2024-06-25] MEDS: MULTIVIT/MIN/PREN/FOL AC/IRON TABLET 1 TAB PO (08:47)
--- NOTE | 2024-06-25 13:02 | WPDANLDPN2 ---
Anes-Prog Note L&D Date/Time: 06/25/24 13:02 Neuro status: Neuro function grossly intact. Cardiovascular status: normal Respiratory status: normal Airway patency: baseline Mental status: baseline Post-Op hydration status: normal Vital Signs: Last Vital Signs Temp 36.8 C 06/25/24 08:00 Pulse 67 06/25/24 08:45 Resp 17 06/25/24 08:00 BP 122/73 06/25/24 08:45 Pulse Ox 99 06/25/24 08:44 O2 Del Method Room Air 06/25/24 08:00 Pain score (VAS): 0 Post-procedural complaints: none Patient feedback: Patient satisfied with anesthetic care.
[2024-06-26 08:30] VITALS: RESP 15; TEMP 37.1
[2024-06-26 08:55] VITALS: PULSE 67; O2SAT 98
[2024-06-26 08:56] VITALS: BP 119/79; PULSE 66
[2024-06-26] MEDS: DOCUSATE SODIUM 100 MG CAPSULE PO ×2 (08:57→08:58)
[2024-06-26] MEDS: IBUPROFEN 600 MG TABLET PO (08:57)
--- NOTE | 2024-06-26 09:00 | PC.NURSE ---
Met with patient to discuss and discharge. Mom is tearful this morning and says she is tired. She was given a nipple shield yesterday due to infants reluctance to latch and suckle at the breast. Mom would like to stop using the shield and we discussed methods for weaning from the shield and reasons for initiating pumping for extra stimulation. We reviewed her Spectra pump in detail. We unwrapped baby and placed her in cross cradle position. Mom has been feeding in cradle hold and we reviewed ways to support baby's head and her breast to help make a 'bite' for baby. Baby latches well after a few attempts and mom states that she has some nipple soreness. We reviewed ways to observe for a deep latch, including nose/chin close to breast, most of areola in baby's mouth, and lower lip flanged out. Dad is present and asking helpful questions to support mom and baby. Baby was sleepily suckling off and on. We moved her to the football position and mom was able to latch her easily. Again, we observed all the signs of a deep latch in this position. She was more eager and suckled more consistently for several minutes. Parents are encouraged to use the shield as a tool if needed. They shouldn't struggle and become frustrated trying to latch without the shield to the point that baby becomes frantic. Discussed swallows, milk production/transition, signs of adequate intake and infant satisfaction. Parents have supplemented with formula and are encouraged to continue if baby does not feed well at the breast or if it is their desire to do so. Supported patient to express her concerns about milk supply and making sure baby gets what she needs. Anticipatory guidance provided on infant behaviors in the early period and expected maternal progression to a mature milk supply within 2 weeks. Parents seem more confident with feeding after our in depth discussion. They are encouraged to call with any further questions/concerns. Mom is aware that Services are available to her after discharge and the phone number will be on the discharge papers as well as in her mom/baby guide. Reported to RN.
--- NOTE | 2024-06-26 11:04 | P.DS_ITS ---
DS: Admitting Diagnosis Discharge Date 06/26/24 Admitting Diagnosis intrauterine at term spontaneous rupture of membranes DS: Discharge Diagnosis Discharge Diagnosis (1) Vaginal delivery: Code(s): O80 - Encounter for full-term uncomplicated delivery Status: Acute OB - DS: Summary OB Procedures : None OB Procedures Intrapartum: Spontaneous Vag Delivery OB Procedures: : None Peripartum Data Laceration Description: Vaginal Episiotomy description: None Status at Discharge Functional status at discharge: independent ambulation Overall status at discharge: patient is back to baseline Time Spent with Patient Time attestation: Total time spent providing and/or coordinating discharge services: Time spent: Less than 30 minutes Exam 2 Const: General: comfortable and no acute distress Resp: Effort & Inspection: normal respiratory effort Auscultation: clear to auscultation bilaterally Cardio: Rate: regular rate GI: GI Palp: Yes Soft to palpation Auscultation: normal bowel sounds Other: Fundus firm below umbilicus Psych: Appearance: grossly normal Mental Status: mental status grossly normal Affect: normal affect DS: Data Data Completed and Pending Pending studies at discharge: Pending at discharge 06/24/24 17:26 Surgical [PTH] Routine Discharge Plan Discharge Discharging Clinician: Fox Edwards Patient Disposition: Home Activity: as tolerated and pelvic rest Diet: regular Discharge Instructions: Education: Mom and Baby Guide Given to: Mother Follow-Up: Call your delivering provider's office for an appointment to be seen in: 4 Weeks Mom and baby should come to the [facility] for the follow-up appointment. Appointment Date/Time: June 27, 2024 at 1:30 pm What to expect at your follow-up visit: Blood Pressure Check Physical Assessment Call [phone] if you are unable to keep your appointment time. BREAST CARE: * Wear a snug supportive bra. * For engorgement discomfort: Breast Feeding: * Apply warm moist washcloths * Express milk as needed to relieve engorgement * Wear loose clothing Bottle Feeding: * May apply ice packs * For sore nipples: * Identify correct latch-on * Apply warm moist washcloths before and after nursing * Air dry nipples after nursing * May apply Lansinoh cream to nipples ABDOMINAL INCISION: (if applicable) * Allow incision to air dry * Do NOT use lotions for powders on your incision * When showering, allow soap and water to run over the incision, but do not wash incision EPISIOTOMY/PERINEAL CARE: * Until bleeding stops, use your chet bottle after urinating * Change your pad frequently throughout the day * You may take sitz baths several times a day (fill your bathtub with warm water and soak for 20 minutes.) Do NOT bathe in the water * No tub baths until seen by your physician - You may shower ACTIVITY: * Rest as much as possible. * Do not exercise or lift anything heavier than your baby (such as laundry or other children.) * Avoid stairs or driving as much as possible. * Do not put anything into the vagina. No douching, tampons, or sexual activity until seen by physician. NOTIFY PHYSICIAN IF YOU HAVE ANY QUESTIONS OR IF ANY OF THE FOLLOWING SYMPTOMS OCCUR: * If your episiotomy or incision becomes red, swollen, or more painful than what you have experienced in the hospital. * If your vaginal bleeding becomes foul smelling. * If your vaginal bleeding becomes more heavy than a period or if your bleeding changes from pink to bright red. However, you may pass an occasional walnut- sized clot once or twice for the first week . * If you experience a sharp, shooting pain in you calves. * If you discover a hard, reddened area on your breast or if you experience flu- like symptoms. DIET: * Eat regular, well-balanced meals. * Drink plenty of fluids daily. If , drink to thirst. Patient Instructions: Antibiotic Form, Vaginal Delivery (DC) Patient Language: Indian Stand Alone Forms: General Discharge Information Follow-up/Referrals: Sophia Dennis MD [Physician] - 4 Weeks Discharge Medications: New acetaminophen 500 mg tablet 500 mg PO Q6H PRN (Reason: pain) Qty: 30 0RF ibuprofen 600 mg tablet 600 mg PO Q6H PRN (Reason: pain) Qty: 30 0RF Continued PNV,calcium 72-iron,carb-folic 29 mg iron- 1 mg tablet 1 tablet PO DAILY Qty: 90 1RF ferrous sulfate 325 mg (65 mg iron) tablet 325 mg PO DAILY mesalamine 1,000 mg suppository 1,000 mg RECTAL DAILY PRN (Reason: proctitus) Date of admission: 06/24/24 05:06 Primary Care Provider: PHYSICIAN,WELDING SYSTEMS AND EQUIPMENT REPAIRER Admitting Provider: Sophia Dennis Attending physician on admission: Sophia Dennis Condition: Stable
[2024-06-27 13:59] VITALS: BP 120/71; PULSE 88; RESP 18; TEMP 37.2; O2SAT 100
== END 2024-06-26 12:30 | disposition home or self-care (01) | DRG 807 ==
LOC: ANHOBPP 06-26 11:06 → ANHLDR 06-27 09:46
PROVIDERS: Obstetrics & Gynecology; Admitting Provider Obstetrics & Gynecology; Visit Provider Student in an Organized Health Care Education/Training Program
DX: O42.12 Full-term premature rupture of membranes, onset of labor more than 24 hours following rupture (principal); Z37.0 Single live birth; Z3A.38 38 weeks gestation of pregnancy; O43.193 Other malformation of placenta, third trimester; O31.23X0 Continuing pregnancy after intrauterine death of one fetus or more, third trimester, not applicable or unspecified
CPT/HCPCS: 36415; 85014; 85018; 85025; 86593; 86703; 86850; 86900; 86901; 88307; 93970; A9270; G0432; J0290; J2405; J2590; J2795; J7120